=== PATIENT | female | born 1935 | race African-American/Black ===

== ENCOUNTER 2016-08-07 20:22 | Inpatient (IN) ==
--- NOTE | 2016-08-07 21:08 | XRay Report ---
Portable chest. Indication: Shortness of breath. Comparison: 2014. The heart is normal in size. There is prominent uncoiling of the thoracic aorta. Calcific plaque is present within the aortic knob. There are areas of atelectasis and scarring at the bases. Suspected early infiltrate at the left lung base. No pneumothorax. No pleural effusion. There is a prominent scoliosis, demineralization, and degenerative changes of the spinal column and shoulders. Impression: Chronic lung changes with superimposed bilateral basilar atelectasis and developing left basilar infiltrate. PROCEDURE INTERPRETED AT [facility] DEPARTMENT OF RADIOLOGY Final Report Signed by: Dr. Ebonie Galdamez
[2016-08-07 21:31] LABS: Basophils % 0.2 % (0.0-0.8); Hematocrit 32.5 VOL% (35.7-47.0); Hemoglobin 10.2 GM/DL (12.0-16.0); Immature Granulocytes % 0.2 %; Immature Granulocytes Absolute 0.01 #; Lymphocytes # 0.8 10*3/uL (1.4-4.0); Mean Corpuscular HGB Conc 31.4 GM/DL (32-36); Mean Corpuscular Hemoglobin 23 PG (27-34); Mean Corpuscular Volume 74.7 FL (87-102); Mean Platelet Volume 10.1 FL (9.6-12.0); Monocytes # 0.2 10*3/uL (0.11-0.8); Monocytes % 3.4 % (1.7-12.7); Neutrophils # 3.8 10*3/uL (1.4-7.4); Neutrophils % 80.2 % (38.7-73.9); Platelet Count 317 10*3/uL (130-400); Red Blood Count 4.35 10*6/uL (3.8-5.5); Red Cell Distribution Width 17.9 % (9.3-17.3); White Blood Count 4.7 10*3/uL (4.5-13.71)
[2016-08-07 21:36] LABS: Apearance,Urine Slightly Hazy (Clear); Bilirubin,Urine Negative (Negative); Blood, Urine Negative (Negative); Glucose,Urine (UA) Negative (Negative); Hyaline Casts,Urine 3 /LPF (0-3); Ketones,Urine 5 mg/dL (Negative); Mucus,Urine Few /LPF (Occasional); Nitrite,Urine Negative (Negative); Protein,Urine 30 MG/DL; RBC,Urine 2 /HPF (0-4); Squamous Epithelial Cell,Urine Occasional /HPF (0-10); Urine Color Yellow (Yellow); Urine Specific Gravity 1.023 (1.001-1.035); Urine Urobilinogen < 2.0 EU/DL (0.2-1.0); WBC,Urine 2 /HPF (0-6)
--- NOTE | 2016-08-07 21:57 | Emergency Department Note ---
IMaine Sierra, am scribing for, and in the presence of, Andrea Bansk MD 20:58. Darren Purcell Robert M, MD, personally performed the services described in this documentation, ascribed by [place] in my presence, and it is both accurate and complete . Arrival - Arrival Chief Complaint: Urogenital - Female Stated Complaint: NAUSEA AND ABD PAIN ED Nursing Triage Note: pt arrives via ems with c/o lower abd pain and unable to urinate. states nausea and 1 episode of vomiting Mode of Arrival: Stretcher Limitations: No Limitations Source: Patient - History of Present Illness HPI Narrative: Pt is a 81 y/o female that was brought to the ED via EMS with c/o lower right sided abdominal pain and vomiting that began a few hours ago. Pt states she is vomiting up water. Pt reports she is able to urinate now but has not urinated yet. No other complaints/pain in ED. she does not have any known heart problems. She takes aspirin a day and a blood pressure medication according to her family. Onset (ago): hour(s) Consistency: constant Severity: mild Severity scale (1-10): 2 Quality: other Allergies/Adverse Reactions: Allergies Allergy/AdvReac Type Severity Reaction Status Date / Time Penicillins Allergy Intermediate Unknown/Unable Verified 07/22/16 10:33 to obtain Sulfa (Sulfonamide Allergy Mild Unknown/Unable Verified 07/22/16 10:33 Antibiotics) to obtain surgical tape Allergy Intermediate Redness of Uncoded 07/22/16 10:33 Skin and severe peeling at site Home Medications: Home Medications Medication Instructions Recorded Confirmed Type Aspirin [Ecotrin] 81 mg PO DAILY 10/26/14 08/07/16 History Folic Acid 1 mg MC DAILY 10/26/14 08/07/16 History Pantoprazole Tab [Protonix Tab] 40 mg PO DAILY 10/26/14 08/07/16 History Vitamin B Complex 100 mg PO DAILY 10/26/14 08/07/16 History Clindamycin Cap [Cleocin Cap] 300 mg PO Q8HR #30 capsule 12/28/15 08/07/16 Rx Comp.stocking,Knee,Regular,Sml 1 each MISC DIRECTED #2 each 07/22/16 Rx [Compression Stocking] Ondansetron Odt Tab [Zofran Odt] 4 mg PO Q4H #30 tablet 07/22/16 08/07/16 Rx Review of System - Review of System 12 point system: reviewed and no additional remarkable complaints except as stated - Review of System Constitutional: Absent: fever Respiratory: Absent: cough Cardiovascular: Absent: chest pain Gastrointestinal: Present: abdominal pain (lower right side), vomiting Musculoskeletal: Absent: arm pain, back pain, leg pain, neck pain Skin: Absent: rash Neurological: Absent: headache Medical,Surgical,& Family Hx - Medical History Cardio: History of: Cardiac Dysrhythmia (ATRIAL FIBRILATION), Cardiovascular Problems (LOW BLOOD PRESSURE) No history of: Aneurysm, Cerebrovascular Disease, Congenital Heart Disease, CHF, CAD, Hypertension, Pacemaker, PVD, Valvular Heart Disease Neurology: No history of: Seizures HEENT: History of: Eye Problem (BLURRY VISION) No history of: Ear Problem, Dental Problems, Glaucoma, Oral Cancer Endocrine: No history of: Adrenal Disease, Diabetes Mellitus (IDDM), Diabetes Mellitus ( NIDDM), Dyslipidemia, Thyroid Disorder, Endocrine Cancer, Endocrine Problems Rheumatology: No history of;: Psoriasis, Sjogrens, Systemic Lupus Erythematosus Renal: No history of: Renal (Kidney) Cancer, Dialysis, Renal Failure Genitourinary: No history of: Bladder Problem, Kidney Stones, Recurring Urinary Tract Infections, Genitourinary Cancer, Problems Gastrointestinal: History of: GI Problems (COLON CANCER SURGERY MAR 2014) Musculoskeletal: History of: Osteoporosis No history of: Amputation Hematology: History of: Bleeding Problems (PAST HISTORY OF BLOOD LOSS) No history of: Blood Transfusion Reaction Reproductive: No history of: Abnormal Pap Smear, Breast Cancer, Endometriosis, Ectopic , Ovarian Cysts, Complication, Sexually Transmitted Disorders , Reproductive Cancer, Reproductive Problems Other: History of: Eczema No history of: Anesthesia Reactions, Anaphylaxis, Malignant Hyperthermia, MRSA, Vancomycin-Resistant Enterococci, Skin Problems, Miscellaneous Medical Problems Comment Only: Cancer (COLON CANCER) - Surgical History Cardiac Surgeries: Patient Denies: Femoral-Popliteal Bypass Graft, Cardiac Catheterization, Cardiac Surgery, Carotid Endarterectomy, Internal Defibrillator, Vascular Access Devices Thoracic Surgeries: Patient denies;: Kidney (Renal Surgery), Lithotripsy, Nephrectomy, Organ Transplant, Lobectomy Neurologic Surgeries: Patient denies: Neurologic Surgery HEENT Surgeries: Surgical HX of: Eye Surgery (RIGHT EYE CATARACT) Patient denies: Carotid Endarterectomy, Thyroid Surgery, Tonsilectomy & Adenoidectomy Abdominal Surgeries: Surgical HX of: Abdominal Surgery (PT STATES BLOCKAGE IN STOMACH), Colonoscopy Patient denies: Appendectomy, Cholecystectomy, Gastric Bypass Surgery, EGD, Hernia Repair, Splenectomy Reproductive Surgeries: Patient denies;: Breast Surgery, Cystoscopy, Genitourinary Surgery, Gynecologic Surgery Orthopedic Surgeries: Patient denies;: Implanted Devices, Orthopedic Surgery, Spinal Surgery, Total Hip Replacement, Total Knee Replacement - Family History Family History: Reports;: Family Diabetes (DAUGHTER, AND SON AND GRANDSON AND 2 SISTERS), Family Hypertension (DAUGHTER, SISTER), Family Stroke (SON, DAUGHTER) Denies;: Family Anesthesia Reaction, Family Cancer, Family Heart Disease, Family Psychiatric Problems - Social History Smoking Status: Never smoker Frequency of Alcohol Use: None Type of Drug Use: None Exam Vital Signs: Vital Signs Temperature 98.9 F 08/07/16 20:22 Pulse Rate 68 08/07/16 22:03 Respiratory Rate 20 08/07/16 22:03 Blood Pressure 134/82 08/07/16 22:03 O2 Sat by Pulse Oximetry 98 08/07/16 22:03 - General General appearance: alert, in no apparent distress - Head Head exam: Present: atraumatic, normocephalic - Eye Eye exam: Present: PERRL, EOMI - ENT ENT exam: Present: mucous membranes moist. Absent: mucous membranes dry - Neck Neck exam: Present: full ROM. Absent: tenderness - Chest Chest inspection: Present: symmetric chest wall rise. Absent: tenderness - Respiratory Respiratory exam: Present: normal lung sounds bilaterally. Absent: respiratory distress - Cardiovascular Cardiovascular exam: Present: regular rate, normal rhythm, normal heart sounds - Abdominal Exam Abdominal exam: Present: soft. Absent: tenderness - Extremities Exam Extremities exam: Present: full ROM. Absent: tenderness - Back Exam Back exam: Present: full ROM. Absent: tenderness - Neurological Exam Neurological exam: Present: alert, oriented X3, CN II-XII intact, other (seems a bit demented) - Psychiatric Psychiatric exam: Present: normal affect, normal mood - Skin Skin exam: Present: warm, dry Course - Consultations Consultation #1: Dr. Rubin was notified of the patient. We will treat the patient symptomatically and see if she improves. If her nausea and right upper quadrant pain persist he may take her to catheterization tonight. Time: 22:15 Results - Labs CBC & BMP: 08/07/16 21:09 08/07/16 21:09 Lab Results: I have reviewed the patients labs Labs: Lab Results WBC 4.7 10*3/uL (4.5-13.71) 08/07/16 21:09 RBC 4.35 10*6/uL (3.8-5.5) 08/07/16 21:09 Hgb 10.2 GM/DL (12.0-16.0) L 08/07/16 21:09 Hct 32.5 VOL% (35.7-47.0) L 08/07/16 21:09 MCV 74.7 FL (87-102) L 08/07/16 21: MCH 23 PG (27-34) L 08/07/16 21:09 MCHC 31.4 GM/DL (32-36) L 08/07/16 21:09 RDW 17.9 % (9.3-17.3) H 08/07/16 21:09 Plt Count 317 10*3/uL (130-400) 08/07/16 21:09 MPV 10.1 FL (9.6-12.0) 08/07/16 21:09 Neut % (Auto) 80.2 % (38.7-73.9) H 08/07/16 21:09 Lymph % (Auto) 16.0 % (21.3-54.2) L 08/07/16 21:09 [place] % (Auto) 3.4 % (1.7-12.7) 08/07/16 21:09 Eos % (Auto) 0.0 % (0.00-10.9) 08/07/16 21:09 Baso % (Auto) 0.2 % (0.0-0.8) 08/07/16 21:09 Neut # (Auto) 3.8 10*3/uL (1.4-7.4) 08/07/16 21:09 Lymph # (Auto) 0.8 10*3/uL (1.4-4.0) L 08/07/16 21:09 [place] # (Auto) 0.2 10*3/uL (0.11-0.8) 08/07/16 21:09 Eos # (Auto) 0.0 10*3/uL (0.0-0.87) 08/07/16 21:09 Baso # (Auto) 0.0 10*3/uL (0.0-0.2) 08/07/16 21:09 Immature Gran % 0.2 % 08/07/16 21:09 Nucleated RBC % 0.0 /100WBC 08/07/16 21:09 Immature Gran # 0.01 # 08/07/16 21:09 Nucleated RBCs # 0.00 10*3/uL 08/07/16 21:09 Sodium 143 MMOL/L (136-145) 08/07/16 21:09 Potassium 3.9 MMOL/L (3.5-5.1) 08/07/16 21:09 Chloride 104 MMOL/L (98-107) 08/07/16 21:09 Carbon Dioxide 28 MMOL/L (21-32) 08/07/16 21:09 Anion Gap 14.9 MMOL/L (5.0-15.0) 08/07/16 21:09 BUN 19 MG/DL (7-18) H 08/07/16 21:09 Creatinine 0.90 MG/DL (0.55-1.02) 08/07/16 21:09 GFR Calculation 58 ML/MIN 08/07/16 21:09 BUN/Creatinine Ratio 21.00 RATIO (6.00-20.00) H 08/07/16 21:09 Glucose 119 MG/DL (74-106) H 08/07/16 21:09 Calculated Osmolality 287.0 MOS/KG (273-304) 08/07/16 21:09 Calcium 9.1 MG/DL (8.5-10.1) 08/07/16 21:09 Magnesium 2.3 MG/DL (1.8-2.4) 08/07/16 21:09 Total Creatine Kinase 1940 U/L (26-192) H 08/07/16 21:09 CK-MB (CK-2) 202.0 U/L (0.5-3.6) H 08/07/16 21:09 CK and CKMB Interp 10.4 % 08/07/16 21:09 Troponin I 45.300 NG/ML (0.00-0.045) H 08/07/16 21:09 Amylase 92 U/L (25-115) 08/07/16 21:09 Lipase 87.0 U/L (73-393) 08/07/16 21:09 Urine Color Yellow (Yellow) 08/07/16 21:09 Urine Appearance Slightly hazy (Clear) 08/07/16 21:09 Urine pH 6.0 (4.5-8.0) 08/07/16 21:09 Ur Specific [place] 1.023 (1.001-1.035) 08/07/16 21:09 Urine Protein 30 MG/DL 08/07/16 21:09 Urine Glucose (UA) Negative mg/dL (Negative) 08/07/16 21:09 Urine Ketones 5 mg/dL (Negative) 08/07/16 21:09 Urine Blood Negative mg/dL (Negative) 08/07/16 21:09 Urine Nitrate Negative (Negative) 08/07/16 21:09 Urine Bilirubin Negative mg/dL (Negative) 08/07/16 21:09 Urine Urobilinogen < 2.0 EU/DL (0.2-1.0) H 08/07/16 21:09 Urine Leukocytes Negative Rachel/ul (Negative) 08/07/16 21:09 Urine RBC 2 /HPF (0-4) 08/07/16 21:09 Urine WBC 2 /HPF (0-6) 08/07/16 21:09 Ur Squamous Epith Cells Occasional /HPF (0-10) 08/07/16 21:09 Hyaline Casts 3 /LPF (0-3) 08/07/16 21:09 Urine Mucus Few /LPF (Occasional) 08/07/16 21:09 Ur Culture Indicated? Not indicated 08/07/16 21:09 - EKG EKG results: interpreted by ERMD (a fibrillation with ST changes and T-wave inversions inferolaterally.) Critical Care Time Critical Care Time: Yes Total Critical Care Time: 44 Disposition Clinical Impression: Non-STEMI (non-ST elevated myocardial infarction) Case discussed with: patient, patient's family Disposition: Still a Patient Condition: Stable Time of Disposition: 22:22
[2016-08-07 22:05] LABS: CKMB % 10.4 %; Calcium 9.1 MG/DL (8.5-10.1); Magnesium 2.3 MG/DL (1.8-2.4); Potassium 3.9 MMOL/L (3.5-5.1)
[2016-08-07 22:08] LABS: Troponin I Only 45.3 NG/ML (0.00-0.045)
[2016-08-07] MEDS ORDERED: ENOXAPARIN 60 MG/0.6 ML SYRINGE SUBCUT STA (22:09)
[2016-08-07] MEDS ORDERED: ASPIRIN 325 MG TABLET PO STA (22:09)
[2016-08-07] MEDS ORDERED: TICAGRELOR 90 MG TABLET PO STA (22:09)
[2016-08-07] MEDS ORDERED: NITROGLYCERIN 2% OINT 1 INCH/GM PACK TOP STA (22:10)
[2016-08-07] MEDS ORDERED: ENOXAPARIN 60 MG/0.6 ML SYRINGE ONE (22:14)
[2016-08-07] MEDS ORDERED: TICAGRELOR 90 MG TABLET ONE (22:14)
[2016-08-07] MEDS ORDERED: ASPIRIN 325 MG TABLET ONE (22:15)
[2016-08-07] MEDS ORDERED: NITROGLYCERIN 2% OINT 1 INCH/GM PACK TOP ONE (22:15)
[2016-08-07] MEDS ORDERED: ONDANSETRON 4 MG/2 ML VIAL ONE (22:21)
[2016-08-07] MEDS ORDERED: ONDANSETRON 4 MG/2 ML VIAL IV STA (22:25)
[2016-08-07] MEDS ORDERED: DOCUSATE SODIUM 100 MG CAPSULE PO PRN (22:34)
[2016-08-07] MEDS ORDERED: ONDANSETRON 4 MG/2 ML VIAL IV PRN (22:34)
[2016-08-07] MEDS ORDERED: POTASSIUM CHLORIDE 20 MEQ/15 ML UDCUP PER TUBE PRN (22:34)
[2016-08-07] MEDS ORDERED: ACETAMINOPHEN 325 MG TABLET PO PRN (22:34)
[2016-08-07] MEDS ORDERED: MAGNESIUM SULF RIDER 2 GM in PREMIX 1 EACH IV PRN (22:34)
[2016-08-07] MEDS ORDERED: MAGNESIUM SULF RIDER 4 GM in PREMIX 1 EACH IV PRN (22:34)
[2016-08-08 02:32] LABS: CKMB % 8.5 %
[2016-08-08 02:39] LABS: Troponin I Only 48.5 NG/ML (0.00-0.045)
[2016-08-08 08:07] LABS: Basophils % 0.2 % (0.0-0.8); Hematocrit 30.4 VOL% (35.7-47.0); Hemoglobin 9.4 GM/DL (12.0-16.0); Immature Granulocytes % 0.4 %; Immature Granulocytes Absolute 0.02 #; Lymphocytes # 0.7 10*3/uL (1.4-4.0); Lymphocytes % 13.9 % (21.3-54.2); Mean Corpuscular HGB Conc 30.9 GM/DL (32-36); Mean Corpuscular Hemoglobin 24 PG (27-34); Mean Corpuscular Volume 76.2 FL (87-102); Mean Platelet Volume 10.9 FL (9.6-12.0); Monocytes # 0.3 10*3/uL (0.11-0.8); Monocytes % 5.1 % (1.7-12.7); Neutrophils # 4.2 10*3/uL (1.4-7.4); Neutrophils % 80.4 % (38.7-73.9); Platelet Count 293 10*3/uL (130-400); Red Blood Count 3.99 10*6/uL (3.8-5.5); Red Cell Distribution Width 18.3 % (9.3-17.3); White Blood Count 5.3 10*3/uL (4.5-13.71)
[2016-08-08 08:15] LABS: Calcium 8.7 MG/DL (8.5-10.1); Magnesium 2.2 MG/DL (1.8-2.4); Potassium 3.7 MMOL/L (3.5-5.1)
[2016-08-08 08:28] LABS: Troponin I Only 44.3 NG/ML (0.00-0.045)
--- NOTE | 2016-08-08 08:30 | Cardiology History & Physical ---
Assessment and Plan (1) Atrial fibrillation with controlled ventricular response Status: Acute Assessment and plan: 1. 81-year-old BF who is a poor historian with controlled hypertension, chronic atrial fibrillation, reportedly multiple strokes most recently February 2014, now presents with non-STEMI with resolution of symptoms late last night in the emergency room 2. Continue Lovenox 3. Low dose beta fady with high intensity statin therapy 4. History of colon cancer and uterine mass status post hysterectomy with oophorectomy as well as right colectomy March 2014 5. Given she is a very poor historian, when he discussed with family ( currently unavailable) before considering catheterization to define her coronary anatomy 6. Check echocardiogram to evaluate for structural heart disease Current Visit: Yes (2) Non-STEMI (non-ST elevated myocardial infarction) Status: Acute Current Visit: Yes History of Present Illness Chief complaint: nausea History of present illness: Ms. Schneider is a 81 year old female who is a very poor historian, and this history is obtained mainly from ED note and previous ER visits. She denies any symptoms currently. She presented late yesterday evening with some left upper quadrant discomfort and nausea and was found to have severely elevated troponin. She was in a fair amount of distress on arrival but her symptoms improved significantly fairly soon with treatment. She has no known cardiac history. She had uterine mass and right sided colon cancer with subsequent right colectomy and hysterectomy with nephrectomy March 2014. She apparently has had multiple strokes with chronic atrial fibrillation most recently February 2014. She is in no distress now and continuing her name but is unaware of the date or place or situation. Her film is unavailable to obtain further history, although they apparently when the ER last night. Home Medications Medication Instructions Recorded Confirmed Type Aspirin [Ecotrin] 81 mg PO DAILY 10/26/14 08/07/16 History Folic Acid 1 mg MC DAILY 10/26/14 08/07/16 History Pantoprazole Tab [Protonix Tab] 40 mg PO DAILY 10/26/14 08/07/16 History Vitamin B Complex 100 mg PO DAILY 10/26/14 08/07/16 History Clindamycin Cap [Cleocin Cap] 300 mg PO Q8HR #30 capsule 12/28/15 08/07/16 Rx Comp.stocking,Knee,Regular,Sml 1 each MISC DIRECTED #2 each 07/22/16 Rx [Compression Stocking] Ondansetron Odt Tab [Zofran Odt] 4 mg PO Q4H #30 tablet 07/22/16 08/07/16 Rx Allergies Allergy/AdvReac Type Severity Reaction Status Date / Time Penicillins Allergy Intermediate Unknown/Unable Verified 07/22/16 10:33 to obtain Sulfa (Sulfonamide Allergy Mild Unknown/Unable Verified 07/22/16 10:33 Antibiotics) to obtain surgical tape Allergy Intermediate Redness of Uncoded 07/22/16 10:33 Skin and severe peeling at site ROS unobtainable: due to mental status Medical,Surgical,& Family Hx - Medical History Cardio: History of: Cardiac Dysrhythmia (ATRIAL FIBRILATION), Cardiovascular Problems (LOW BLOOD PRESSURE) No history of: Aneurysm, Cerebrovascular Disease, Congenital Heart Disease, CHF, CAD, Hypertension, Pacemaker, PVD, Valvular Heart Disease Neurology: No history of: Seizures HEENT: History of: Eye Problem (BLURRY VISION) No history of: Ear Problem, Dental Problems, Glaucoma, Oral Cancer Endocrine: No history of: Adrenal Disease, Diabetes Mellitus (IDDM), Diabetes Mellitus ( NIDDM), Dyslipidemia, Thyroid Disorder, Endocrine Cancer, Endocrine Problems Rheumatology: No history of;: Psoriasis, Sjogrens, Systemic Lupus Erythematosus Respiratory: No history of: Asthma, Bronchitis, COPD, Intubation, Obstructive Sleep Apnea , Pulmonary Embolism, Pulmonary Hypertension, Pneumonia, Lung Cancer, Respiratory Problems Renal: No history of: Renal (Kidney) Cancer, Dialysis, Renal Failure Genitourinary: No history of: Bladder Problem, Kidney Stones, Recurring Urinary Tract Infections, Genitourinary Cancer, Problems Gastrointestinal: History of: GI Problems (COLON CANCER SURGERY MAR 2014) Musculoskeletal: History of: Osteoporosis No history of: Amputation Hematology: History of: Bleeding Problems (PAST HISTORY OF BLOOD LOSS) No history of: Blood Transfusion Reaction Reproductive: No history of: Abnormal Pap Smear, Breast Cancer, Endometriosis, Ectopic , Ovarian Cysts, Complication, Sexually Transmitted Disorders , Reproductive Cancer, Reproductive Problems Other: History of: Eczema No history of: Anesthesia Reactions, Anaphylaxis, Malignant Hyperthermia, MRSA, Vancomycin-Resistant Enterococci, Skin Problems, Miscellaneous Medical Problems Comment Only: Cancer (COLON CANCER) - Surgical History Cardiac Surgeries: Patient Denies: Femoral-Popliteal Bypass Graft, Cardiac Catheterization, Cardiac Surgery, Carotid Endarterectomy, Internal Defibrillator, Vascular Access Devices Thoracic Surgeries: Patient denies;: Kidney (Renal Surgery), Lithotripsy, Nephrectomy, Organ Transplant, Lobectomy Neurologic Surgeries: Patient denies: Neurologic Surgery HEENT Surgeries: Surgical HX of: Eye Surgery (RIGHT EYE CATARACT) Patient denies: Carotid Endarterectomy, Thyroid Surgery, Tonsilectomy & Adenoidectomy Abdominal Surgeries: Surgical HX of: Abdominal Surgery (PT STATES BLOCKAGE IN STOMACH), Colonoscopy Patient denies: Appendectomy, Cholecystectomy, Gastric Bypass Surgery, EGD, Hernia Repair, Splenectomy Reproductive Surgeries: Patient denies;: Breast Surgery, Cystoscopy, Genitourinary Surgery, Gynecologic Surgery Orthopedic Surgeries: Patient denies;: Implanted Devices, Orthopedic Surgery, Spinal Surgery, Total Hip Replacement, Total Knee Replacement - Family History Family History: Reports;: Family Diabetes (DAUGHTER, AND SON AND GRANDSON AND 2 SISTERS), Family Hypertension (DAUGHTER, SISTER), Family Stroke (SON, DAUGHTER) Denies;: Family Anesthesia Reaction, Family Cancer, Family Heart Disease, Family Psychiatric Problems - Social History Smoking Status: Never smoker Frequency of Alcohol Use: None Type of Drug Use: None Cardiology Physical Exam - Constitutional Vitals: Vital Signs Temp Pulse Resp BP Pulse Ox 97.8 F 76 14 161/91 99 08/07/16 23:30 08/08/16 06:00 08/08/16 06:00 08/08/16 06:00 08/08/16 06:00 Intake and Output 08/07/16 08/08/16 08/08/16 23:59 07:59 15:59 Output Total 150 / 150 Balance -150 / -150 Output: Urine 150 / 150 Other: Voiding Method Indwelling Catheter Weight 52.163 kg 52.163 kg Patient Weight 08/08/16 23:59 Weight 52.163 kg General appearance: no acute distress, under weight - Respiratory Respiratory exam: Present: rales. Absent: wheezes - Cardiovascular Cardiovascular exam: Present: irregular rhythm. Absent: diastolic murmur - GI/Abdominal GI/Abdominal exam: Present: soft. Absent: tenderness - Extremities Exam Extremities exam: Absent: edema Result/EKG - Labs CBC & BMP: 08/08/16 07:01 08/08/16 07:01 Labs: Laboratory Results - last 24 hr 08/08/16 08/08/16 08/08/16 01:12 07:01 07:01 WBC 5.3 RBC 3.99 Hgb 9.4 L Hct 30.4 L MCV 76.2 L MCH 24 L MCHC 30.9 L RDW 18.3 H Plt Count 293 MPV 10.9 Neut % (Auto) 80.4 H Lymph % (Auto) 13.9 L [place] % (Auto) 5.1 Eos % (Auto) 0.0 Baso % (Auto) 0.2 Neut # (Auto) 4.2 Lymph # (Auto) 0.7 L [place] # (Auto) 0.3 Eos # (Auto) 0.0 Baso # (Auto) 0.0 Immature Gran % 0.4 Nucleated RBC % 0.0 Immature Gran # 0.02 Nucleated RBCs # 0.00 Sodium Potassium Chloride Carbon Dioxide Anion Gap BUN Creatinine GFR Calculation BUN/Creatinine Ratio Glucose Calculated Osmolality Calcium Magnesium Total Creatine Kinase 1787 H 1562 H CK-MB (CK-2) 151.8 H D 108.9 H D CK and CKMB Interp 8.5 7.0 Troponin I 48.500 H 44.300 H 08/08/16 07:01 WBC RBC Hgb Hct MCV MCH MCHC RDW Plt Count MPV Neut % (Auto) Lymph % (Auto) [place] % (Auto) Eos % (Auto) Baso % (Auto) Neut # (Auto) Lymph # (Auto) [place] # (Auto) Eos # (Auto) Baso # (Auto) Immature Gran % Nucleated RBC % Immature Gran # Nucleated RBCs # Sodium 143 Potassium 3.7 Chloride 104 Carbon Dioxide 28 Anion Gap 14.7 BUN 20 H Creatinine 0.90 GFR Calculation 58 BUN/Creatinine Ratio 22.00 H Glucose 116 H Calculated Osmolality 288.0 Calcium 8.7 Magnesium 2.2 Total Creatine Kinase CK-MB (CK-2) CK and CKMB Interp Troponin I
--- NOTE | 2016-08-08 08:32 | EKG Report ---
Stationary ECG Study [facility] ER Test Date: 08/07/2016 10:12:11 PM Pat Name: GARCIA BYRNES Department: Room: 125 Gender: F Discharging Machine Operator: : 1935 Requested by: Andrea Banks Order Number: [id number] Reading MD: RYLEE HATCH Intervals [place] Rate: 79 P: 999 NC: 0 QRS: 79 QRSD: 77 T: -89 QT: 417 QTc: 452 Interpretive Statements ATRIAL FIBRILLATION VOLTAGE CRITERIA FOR LVH ST DEVIATION AND MARKED T-WAVE ABNORMALITY, CONSIDER ANTEROLATERAL ISCHEMIA ST DEVIATION AND MODERATE T-WAVE ABNORMALITY, CONSIDER INFERIOR ISCHEMIA INTERPRETATION BASED ON A DEFAULT AGE OF 40 YEARS Electronically Signed On 08-08-16 12:19:13 PRESS LOADER by RYLEE HATCH [id number]
--- NOTE | 2016-08-08 08:38 | EKG Report ---
Stationary ECG Study [facility] Test Date: 08/07/2016 11:47:27 PM Pat Name: GARCIA BYRNES Department: Room: 125 Gender: F Brim Blocker: Ellie MARTIN RN : 1935 Requested by: Azael Leahy Order Number: [id number] Reading MD: RYLEE HATCH Intervals [place] Rate: 81 P: 999 TN: 0 QRS: 76 QRSD: 78 T: 270 QT: 419 QTc: 457 Interpretive Statements ATRIAL FIBRILLATION VOLTAGE CRITERIA FOR LVH ST DEVIATION AND MODERATE T-WAVE ABNORMALITY, CONSIDER ANTEROLATERAL ISCHEMIA ST DEVIATION AND MODERATE T-WAVE ABNORMALITY, CONSIDER INFERIOR ISCHEMIA INTERPRETATION BASED ON A DEFAULT AGE OF 40 YEARS Electronically Signed On 08-08-16 12:20:10 DIRECTOR TALENT MANAGEMENT by RYLEE HATCH [id number]
--- NOTE | 2016-08-08 08:39 | EKG Report ---
Stationary ECG Study [facility] Test Date: 08/08/2016 8:38:34 AM Pat Name: GARCIA BYRNES Department: Room: 125 Gender: F Instructor Dancing: : 1935 Requested by: Azael Leahy Order Number: [id number] Reading MD: RYLEE HATCH Intervals [place] Rate: 71 P: 999 CA: 0 QRS: 67 QRSD: 77 T: 264 QT: 431 QTc: 453 Interpretive Statements ATRIAL FIBRILLATION WITH ABERRANT CONDUCTION OR VENTRICULAR PREMATURE COMPLEXES VOLTAGE CRITERIA FOR LVH ST DEVIATION AND MARKED T-WAVE ABNORMALITY, CONSIDER ANTEROLATERAL ISCHEMIA ST DEVIATION AND MODERATE T-WAVE ABNORMALITY, CONSIDER INFERIOR ISCHEMIA Electronically Signed On 08-08-16 12:24:14 DAIRY HUSBANDMAN by RYLEE HATCH [id number]
[2016-08-08] MEDS ORDERED: NITROGLYCERIN SL 0.4 MG TABLET SL PRN (08:40)
[2016-08-08 09:50] LABS: Albumin 2.7 G/DL (3.4-5.0); Bilirubin,Total 0.4 MG/DL (0.2-1.0); Calcium 8.4 MG/DL (8.5-10.1); Potassium 3.7 MMOL/L (3.5-5.1); Total Protein 6.1 G/DL (6.4-8.3)
[2016-08-08] MEDS: ENOXAPARIN 60 MG/0.6 ML SYRINGE SUBCUT SCH ×2 (09:53→21:08)
[2016-08-08] MEDS: ASPIRIN EC 81 MG TABLET PO SCH (10:46)
[2016-08-08] MEDS: PANTOPRAZOLE 40 MG TABLET PO SCH (10:46)
[2016-08-08] MEDS: TICAGRELOR 90 MG TABLET PO SCH ×2 (10:46→21:08)
[2016-08-08] MEDS: POTASSIUM CHLORIDE 20 MEQ TABLET PO PRN (10:46)
[2016-08-08] MEDS: ATORVASTATIN 40 MG TABLET PO SCH (10:46)
[2016-08-08] MEDS: METOPROLOL TARTRATE 25 MG TABLET PO SCH ×2 (10:46→21:08)
--- NOTE | 2016-08-08 12:34 | EKG Report ---
Stationary ECG Study [facility] Test Date: 08/08/2016 12:34:36 PM Pat Name: GARCIA BYRNES Department: Room: 125 Gender: F Instructional Design Specialist: : 1935 Requested by: Azael Leahy Order Number: [id number] Reading MD: RYLEE HATCH Intervals [place] Rate: 73 P: 999 VT: 0 QRS: 60 QRSD: 77 T: 253 QT: 428 QTc: 454 Interpretive Statements ATRIAL FIBRILLATION VOLTAGE CRITERIA FOR LVH ST DEVIATION AND MARKED T-WAVE ABNORMALITY, CONSIDER ANTEROLATERAL ISCHEMIA ST DEVIATION AND MODERATE T-WAVE ABNORMALITY, CONSIDER INFERIOR ISCHEMIA Electronically Signed On 08-08-16 15:04:31 TROUBLE SHOOTING MECHANIC by RYLEE HATCH [id number]
--- NOTE | 2016-08-08 14:56 | EKG Report ---
Stationary ECG Study [facility] Test Date: 08/08/2016 2:55:51 PM Pat Name: GARCIA BYRNES Department: Room: 125 Gender: F Clinical Programmer: MARCELLUS : 1935 Requested by: Andrea Banks Order Number: [id number] Reading MD: RYLEE HATCH Intervals [place] Rate: 73 P: 999 CT: 0 QRS: 81 QRSD: 76 T: 269 QT: 419 QTc: 445 Interpretive Statements ATRIAL FIBRILLATION VOLTAGE CRITERIA FOR LVH ST DEVIATION AND MODERATE T-WAVE ABNORMALITY, CONSIDER LATERAL ISCHEMIA ST DEVIATION AND MODERATE T-WAVE ABNORMALITY, CONSIDER INFERIOR ISCHEMIA INTERPRETATION BASED ON A DEFAULT AGE OF 40 YEARS Electronically Signed On 08-08-16 15:05:20 PR MANAGER by RYLEE HATCH [id number]
--- NOTE | 2016-08-08 15:22 | ECHO Report ---
Mirlande Schneider Exam Date: 08/08/2016 10:08 Referring Physician: Technologist: Sandra LEÓN Age: 81 Ht (in): Wt (lb): Gender: F Exam Location: [facility] Echo Indications: chest pain, a fib, NON- STEMI BP: / HR: Rhythm: Sinus Technical Quality: IMPRESSIONS 4+ left atrial enlargement Normal LV systolic function with ejection fraction estimated to be 60% without obvious wall motion normality Aortic sclerosis without stenosis; 1+ aortic regurgitation 1-2+ mitral regurgitation 2+ tricuspid regurgitation with RVSP of 50 mmHg plus RAP suggesting at least moderate pulmonary hypertension Irregular rhythm noted MEASUREMENTS (Male / Female) Normal Values 2D ECHO LV Diastolic Diameter PLAX 4.7 cm 4.2 - 5.9 / 3.9 - 5.3 cm LV Systolic Diameter PLAX 4.1 cm LV Fractional Shortening PLAX 12.4 % IVS Diastolic Thickness 1.6 cm 0.6 - 1.0 / 0.6 - 0.9 cm LVPW Diastolic Thickness 1.0 cm 0.6 - 1.0 / 0.6 - 0.9 cm RV Internal Dim ED PLAX 2.8 cm Aortic Root Diameter 3.4 cm LA Systolic Diameter LX 6.1 cm 3.0 - 4.0 / 2.7 - 3.8 cm DOPPLER TR Peak Velocity 352.0 cm/s TR Peak Gradient 49.6 mmHg FINDINGS Left Ventricle Moderately increased septal wall thickness. Moderate concentric left ventricular hypertrophy with diastolic dysfunction. Left ventricular ejection fraction is estim Right Ventricle Moderately increased right ventricular size. Right Atrium Severely increased right atrial size. Left Atrium Severely increased left atrial diameter. Mitral Valve Mil Aortic Valve Aortic valve sclerosis without stenosis. Mild aortic valve regurgitation. Tricuspid Valve Pulmonic Valve Pulmonic valve not well visualized. Pericardium No pericardial effusion.+ Pleural effusion. Aorta Normal size aortic root and proximal ascending aorta. Azael Rubin (Electronically Signed) Final Date: 08 August 2016 15:21
[2016-08-08 15:58] LABS: CKMB % 4.7 %
[2016-08-09 05:01] LABS: Basophils % 0.1 % (0.0-0.8); Hematocrit 30.6 VOL% (35.7-47.0); Hemoglobin 9.7 GM/DL (12.0-16.0); Immature Granulocytes % 0.6 %; Immature Granulocytes Absolute 0.07 #; Lymphocytes # 0.7 10*3/uL (1.4-4.0); Lymphocytes % 5.4 % (21.3-54.2); Mean Corpuscular HGB Conc 31.7 GM/DL (32-36); Mean Corpuscular Hemoglobin 24 PG (27-34); Mean Corpuscular Volume 74.8 FL (87-102); Mean Platelet Volume 10.6 FL (9.6-12.0); Monocytes # 0.9 10*3/uL (0.11-0.8); Monocytes % 7.5 % (1.7-12.7); Neutrophils # 10.6 10*3/uL (1.4-7.4); Neutrophils % 86.4 % (38.7-73.9); Platelet Count 283 10*3/uL (130-400); Red Blood Count 4.09 10*6/uL (3.8-5.5); Red Cell Distribution Width 17.9 % (9.3-17.3); White Blood Count 12.3 10*3/uL (4.5-13.71)
[2016-08-09 05:43] LABS: Calcium 8.5 MG/DL (8.5-10.1); Potassium 3.9 MMOL/L (3.5-5.1)
[2016-08-09] MEDS: ASPIRIN EC 81 MG TABLET PO SCH (09:28)
[2016-08-09] MEDS: ATORVASTATIN 40 MG TABLET PO SCH (09:29)
[2016-08-09] MEDS: TICAGRELOR 90 MG TABLET PO SCH ×2 (09:29→20:54)
[2016-08-09] MEDS: METOPROLOL TARTRATE 25 MG TABLET PO SCH ×2 (09:30→20:54)
[2016-08-09] MEDS: POTASSIUM CHLORIDE 20 MEQ TABLET PO PRN (09:30)
[2016-08-09] MEDS: PANTOPRAZOLE 40 MG TABLET PO SCH (09:30)
[2016-08-09] MEDS: ENOXAPARIN 60 MG/0.6 ML SYRINGE SUBCUT SCH ×2 (09:31→20:54)
[2016-08-09] MEDS ORDERED: DIAZEPAM 5 MG TABLET PO ONE (10:42)
[2016-08-09] MEDS ORDERED: POTASSIUM CHLORIDE RIDER 10 MEQ in PREMIX 1 EACH IV PRN (10:42)
[2016-08-09] MEDS ORDERED: diphenhydrAMINE CAP 25 MG CAPSULE PO ONE (10:42)
[2016-08-09] MEDS ORDERED: LIDOCAINE 1% 20 ML VIAL ONE (11:24)
[2016-08-09] MEDS ORDERED: MIDAZOLAM 2 MG/2 ML VIAL ONE (11:36)
--- NOTE | 2016-08-09 11:40 | History and Physical Update ---
Sedation H&P Update - History and Physical H&P was reviewed, the patient examined and there: are no changes in the patients condition since last H&P was completed. (The patient had a non-STEMI. She had recurrence of pain on the right side which is like what she came in the hospital with. There is concern for postinfarction angina. Her femoral and foot pulses are normal. Lungs are clear. No bleeding in the pt's bowels, urine , or coughing up blood. No planned surgery for the next year. No contraindication to anticoagulation for a year.) - Dictation Physical: refer to H&P completed by admitting physician - Physical Exam Mental Status: alert and oriented Heart: regular rate and rhythm Lung: clear to auscultation Abdomen: within normal limits Vitals: within normal limits - Sedation Plan for Sedation: minimal ASA Class: III Airway Assessment: Class II: Soft palate, uvula, fauces visible
[2016-08-09] MEDS ORDERED: MEPERIDINE 25 MG/1 ML VIAL ONE (12:00)
[2016-08-09] MEDS ORDERED: HEPARIN 5,000 UNIT/1 ML VIAL ONE (12:19)
[2016-08-09] MEDS ORDERED: HYDROmorphone 2 MG/1 ML VIAL ONE (12:47)
[2016-08-09] MEDS ORDERED: TICAGRELOR 90 MG TABLET ONE (13:35)
--- NOTE | 2016-08-09 13:51 | Operative Note ---
Date of procedure: 08/09/16 Procedure Preformed: Left heart cath, left ventriculography, coronary arteriography, stent of the LAD , stent of the right coronary-second vessel, PTCA of the mid circumflex-third vessel, Angio-Seal of the right femoral artery, loading with Brilinta, 180 mg by mouth Surgeon / Physician: Geovanni Gray Right Of Way Agent: Milton Romero Post-op diagnosis: same (81-year-old woman with prior CVA, chronic atrial fib, presents with a non-STEMI and has had postinfarction angina.) Findings: Impression: Significant disease in the mid LAD, mid to distal circumflex, and mid right coronary artery-the circumflex was probably the infarct related vessel Mild global left ventricle systolic dysfunction with LVEF of 50% Inferobasal severe hypokinesis to akinesis 2+ MR Status post successful direct stenting of the DHH-oukp-nntlmwy stent, 2.75 x 12 mm Zions Alpine Status post successful stenting of the mid right coronary tpkoqr-qwdo-hphdhed stent, predilated with a 2.0 x 20 mm NC trek, 2.25 x 18 mm Zions Alpine Status post successful angioplasty of the mid circumflex- Angio-Seal of the right femoral artery-successful Brilinta 180 mg p.o. given at the end of the case-rebolus Plan/recommendations: The patient will have risk factors optimized. The patient will be on antiplatelet medications to include aspirin indefinitely and Plavix or Brilinta for at least a year. Follow-up will be scheduled. Addenda: I saw the patient post-cath. the groin puncture site and distal pulse are stable. vital signs are stable and the patient will be observed closely overnight. Specimens: none sent Estimated blood loss: minimal Condition: stable Anesthesia: local, conscious sedation Disposition: ICU
--- NOTE | 2016-08-09 13:56 | Cardiology Operative Report ---
Date of Procedure:: 08/09/16 Post-op diagnosis: same (81-year-old woman with prior CVA, chronic atrial fib, presents with a non-STEMI and has had postinfarction angina.) Procedure: Date of procedure: 08/09/16 Procedure Preformed: Left heart cath, left ventriculography, coronary arteriography, stent of the LAD , stent of the right coronary-second vessel, PTCA of the mid circumflex-third vessel, Angio-Seal of the right femoral artery, loading with Brilinta, 180 mg by mouth Surgeon / Physician: Geovanni Gray Doorperson Or Luggage Porter: Milton Romero Post-op diagnosis: same (81-year-old woman with prior CVA, chronic atrial fib, presents with a non-STEMI and has had postinfarction angina.) stent procedure: The patient was prepped and draped in usual manner. Entered the right femoral artery via the Seldinger technique. I used a sheath and then used a JL4 and engaged left coronary. Multiple views were taken. I then exchanged for a JR4. Multiple views of the right coronary were taken. I then exchanged for an angled pigtail. I crossed the valve. Left ventricular end-diastolic pressures measured. Left ventriculography was done. Left ventricle pullback was done. The catheters were then removed from the patient. Please see the data sheets for the details of catheters used. Intervention: Cardiovascular surgery was available for any complications. The coronary intervention was done using a JL4 guiding catheter, 0.014 run through wire,,. I placed the wire and the circumflex and dilated it with a 2.0 x 20 mm balloon. The results were favorable. After no predilatation, then placed a 2.75 x 15 mm Zions Alpine coronary stent across the lesion in the LAD.. It was deployed. Afterwards, I exchange this guide for JR4. Then placed a wire across the mid lesion of the right coronary. Predilated with a 2.0 x 20 mm NC trek. Ask predilated and then placed a 2.25 x 18 mm Zions Alpine across the mid right coronary lesion. Angiogram of the right femoral artery was done, either at that time or as a follow-through from the aortogram/left ventriculogram. Angio-Seal was done. Patient was transferred to her room on telemetry in satisfactory condition. Please see the cath report for details of the pressures, catheters, and duration of inflation. Complications: none Hemodynamic data: LVEDP see data sheet Angiographic data: The left main coronary was large and had minimal luminal irregularities. The left anterior descending artery was large. There is one major diagonal. The proximal midportion had a 70-80% narrowing. Otherwise her minimal luminal irregularities The left circumflex system was moderate. It was 1 major obtuse marginal and 1 posterior lateral branches. The mid to distal circumflex, prior to the takeoff of the small post lateral, had a 95% narrowing. Otherwise there are minimal luminal irregularities in the circumflex The right coronary artery was small to moderate in size, dominant vessel with the PDA. There was a moderate sized post lateral branch. The midportion of the vessel had a 95% narrowing. Otherwise there were minimal luminal irregularities. GOMEZ left ventriculography revealed mildly reduced global/regional left ventricular systolic function. Overall ejection fraction was at least 50%. There is 2+ mitral regurgitation. After intervention of the circumflex, there was a 40% residual. And JOHN grade III flow After direct stenting of the LAD there is a 0% residual and JOHN grade III flow. After dilating and then standing the mid right coronary, there was a 0% residual with JOHN grade III flow. Angiogram of the right femoral artery revealed the puncture site to be in a large vessel, above the bifurcation. It was suitable for Angio-Seal. Findings: Impression: Significant disease in the mid LAD, mid to distal circumflex, and mid right coronary artery-the circumflex was probably the infarct related vessel Mild global left ventricle systolic dysfunction with LVEF of 50% Inferobasal severe hypokinesis to akinesis 2+ MR Status post successful direct stenting of the PZW-ermb-vxgcrrp stent, 2.75 x 12 mm Zions Alpine Status post successful stenting of the mid right coronary jmndeg-xgdr-fdrrysh stent-- 2.25 x 18 mm Zions Alpine stent, predilated with a 2.0 x 20 mm NC trek, Status post successful angioplasty of the mid circumflex- Angio-Seal of the right femoral artery-successful Brilinta 180 mg p.o. given at the end of the case-rebolus Plan/recommendations: The patient will have risk factors optimized. The patient will be on antiplatelet medications to include aspirin indefinitely and Plavix or Brilinta for at least a year. Follow-up will be scheduled. Addenda: I saw the patient post-cath. the groin puncture site and distal pulse are stable. vital signs are stable and the patient will be observed closely overnight. Specimens: none sent Estimated blood loss: minimal Condition: stable Anesthesia: local, conscious sedation Disposition: ICU Additional CC's: Rambo Fairchild Anesthesia: local, minimal conscious sedation, other Surgeon / Physician: Geovanni Gray Doorperson Or Luggage Porter: other Estimated blood loss: minimal Specimens: none sent Condition: stable Disposition: ICU/CCU
[2016-08-09] MEDS ORDERED: TICAGRELOR 90 MG TABLET PO ONE (14:03)
[2016-08-09] MEDS: METOPROLOL SUCCINATE XL 50 MG TABLET PO SCH ×2 (14:22→20:54)
--- NOTE | 2016-08-09 14:29 | EKG Report ---
Stationary ECG Study [facility] Test Date: 08/09/2016 2:28:10 PM Pat Name: GARCIA BYRNES Department: Room: 125 Gender: F Pad Assembler: : 1935 Requested by: Geovanni Gray Order Number: [id number] Reading MD: EVITA GILL Intervals [place] Rate: 90 P: 999 [place]: 0 QRS: 69 QRSD: 76 T: 263 QT: 374 QTc: 422 Interpretive Statements ATRIAL FIBRILLATION MODERATE VOLTAGE CRITERIA FOR LVH, CONSIDER NORMAL VARIANT ST DEVIATION AND MODERATE T-WAVE ABNORMALITY, CONSIDER ANTEROLATERAL ISCHEMIA ST DEVIATION AND MODERATE T-WAVE ABNORMALITY, CONSIDER INFERIOR ISCHEMIA Electronically Signed On 08-11-16 13:19:07 LAST CHALKER by EVITA GILL [email or web address]
[2016-08-09 15:22] LABS: CKMB % 2.2 %
[2016-08-09 15:24] LABS: Troponin I Only 12.6 NG/ML (0.00-0.045)
[2016-08-09] MEDS: SODIUM CHLORIDE 0.9% 1,000 ML IV SCH (17:19)
[2016-08-09 22:23] LABS: CKMB % 2.1 %
[2016-08-09 22:40] LABS: Troponin I Only 11.6 NG/ML (0.00-0.045)
[2016-08-10] MEDS: SODIUM CHLORIDE 0.9% 1,000 ML IV SCH (04:58)
[2016-08-10 05:08] LABS: Basophils % 0.1 % (0.0-0.8); Eosinophils % 0.6 % (0.00-10.9); Hematocrit 24.5 VOL% (35.7-47.0); Hemoglobin 7.7 GM/DL (12.0-16.0); Immature Granulocytes % 0.6 %; Immature Granulocytes Absolute 0.04 #; Lymphocytes # 0.7 10*3/uL (1.4-4.0); Lymphocytes % 10.2 % (21.3-54.2); Mean Corpuscular HGB Conc 31.4 GM/DL (32-36); Mean Corpuscular Hemoglobin 23 PG (27-34); Mean Platelet Volume 10.6 FL (9.6-12.0); Monocytes # 0.5 10*3/uL (0.11-0.8); Monocytes % 7.7 % (1.7-12.7); Neutrophils # 5.5 10*3/uL (1.4-7.4); Neutrophils % 80.8 % (38.7-73.9); Platelet Count 249 10*3/uL (130-400); Red Blood Count 3.31 10*6/uL (3.8-5.5); Red Cell Distribution Width 18.1 % (9.3-17.3); White Blood Count 6.8 10*3/uL (4.5-13.71)
[2016-08-10 05:44] LABS: Calcium 7.8 MG/DL (8.5-10.1); Magnesium 2.2 MG/DL (1.8-2.4); Osmolality,Calculated 287.7 MOS/KG (273-304); Potassium 3.8 MMOL/L (3.5-5.1)
[2016-08-10 05:45] LABS: Calcium 7.7 MG/DL (8.5-10.1); Osmolality,Calculated 287.7 MOS/KG (273-304); Potassium 3.6 MMOL/L (3.5-5.1)
--- NOTE | 2016-08-10 07:28 | EKG Report ---
Stationary ECG Study [facility] Test Date: 08/10/2016 7:27:05 AM Pat Name: GARCIA BYRNES Department: Room: 125 Gender: F Irrigator Overhead: CLEVE : 1935 Requested by: Geovanni Gray Order Number: [id number] Reading MD: EVITA GILL Intervals [place] Rate: 97 P: 999 [place]: 0 QRS: 34 QRSD: 81 T: 243 QT: 352 QTc: 407 Interpretive Statements ATRIAL FIBRILLATION WITH ABERRANT CONDUCTION OR VENTRICULAR PREMATURE COMPLEXES ST DEVIATION AND MODERATE T-WAVE ABNORMALITY, CONSIDER LATERAL ISCHEMIA ST DEVIATION AND MODERATE T-WAVE ABNORMALITY, CONSIDER INFERIOR ISCHEMIA Electronically Signed On 08-11-16 13:28:39 CASINO CHANGE ATTENDANT by EVITA GILL [id number]
[2016-08-10 07:54] LABS: CKMB % 2.1 %
[2016-08-10 08:04] LABS: Troponin I Only 10.8 NG/ML (0.00-0.045)
[2016-08-10] MEDS: ATORVASTATIN 40 MG TABLET PO SCH (09:41)
[2016-08-10] MEDS: METOPROLOL TARTRATE 25 MG TABLET PO SCH (09:42)
[2016-08-10] MEDS: METOPROLOL SUCCINATE XL 50 MG TABLET PO SCH ×2 (09:43→20:57)
[2016-08-10] MEDS: PANTOPRAZOLE 40 MG TABLET PO SCH (09:43)
[2016-08-10 11:51] LABS: Basophils % 0.3 % (0.0-0.8); Eosinophils % 0.4 % (0.00-10.9); Hematocrit 25.7 VOL% (35.7-47.0); Hemoglobin 7.9 GM/DL (12.0-16.0); Immature Granulocytes % 0.3 %; Immature Granulocytes Absolute 0.02 #; Lymphocytes # 0.6 10*3/uL (1.4-4.0); Lymphocytes % 9.2 % (21.3-54.2); Mean Corpuscular HGB Conc 30.7 GM/DL (32-36); Mean Corpuscular Hemoglobin 24 PG (27-34); Mean Corpuscular Volume 76.5 FL (87-102); Mean Platelet Volume 10.5 FL (9.6-12.0); Monocytes # 0.7 10*3/uL (0.11-0.8); Monocytes % 9.4 % (1.7-12.7); Neutrophils # 5.6 10*3/uL (1.4-7.4); Neutrophils % 80.4 % (38.7-73.9); Platelet Count 240 10*3/uL (130-400); Red Blood Count 3.36 10*6/uL (3.8-5.5); Red Cell Distribution Width 18.1 % (9.3-17.3); White Blood Count 6.9 10*3/uL (4.5-13.71)
--- NOTE | 2016-08-10 12:39 | Cardiology Progress Note ---
Jagdeep Purcell Rachel, RN, am scribing for, and in the presence of, Azael Rubin MD 12:38. Assessment and Plan (1) Status post left heart catheterization (LHC) Status: Acute Assessment and plan: 08/08/16 1. 81-year-old BF who is a poor historian with controlled hypertension, chronic atrial fibrillation, reportedly multiple strokes most recently February 2014, now presents with non-STEMI with resolution of symptoms late last night in the emergency room 2. Continue Lovenox 3. Low dose beta fady with high intensity statin therapy 4. History of colon cancer and uterine mass status post hysterectomy with oophorectomy as well as right colectomy March 2014 5. Given she is a very poor historian, when he discussed with family ( currently unavailable) before considering catheterization to define her coronary anatomy 6. Check echocardiogram to evaluate for structural heart disease 08/09/16 1. PCI with successful stenting of the LAD with NORTH, stenting of the mid RCA with NORTH, and angioplasty of the mid circumflex. Angio-Seal of the right femoral artery was successful per Dr. Gray. 08/10/16 1. Status post successful three-vessel intervention as noted above, without shortness of breath or chest discomfort 2. Hematocrit trended down significantly to less than 24%; hold aspirin Brilinta as well as Lovenox with follow-up CBC at noon. She has no bleeding source noted, and heme stool test ordered 3. She can be transferred to the floor from a cardiac standpoint, she is hemodynamically stable 4. Continues high intensity statin therapy and beta fady therapy Current Visit: Yes (2) Atrial fibrillation with controlled ventricular response Status: Acute Current Visit: Yes (3) Non-STEMI (non-ST elevated myocardial infarction) Status: Acute Current Visit: Yes Cardiology - PN: Subj Interval history: Patient is status post PCI with successful stenting of the LAD with NORTH, stenting of the mid RCA with NORTH, and angioplasty of the mid circumflex. Angio- Seal of the right femoral artery was successful. Patient has done well post cath. She is without compliants this morning. She denies chest pain, SOB, and palpitations. She remains in atrial fib with controlled ventricular response ( she has chronic Atrial fib). Her current heart rate is in the 90's. Right groin is stable and without bleeding distal pulses present. H and H is low this morning at 7 and 24. No evidence of retroperitoneal bleed. She is currently asymptomatic with a blood pressure of 123/84. The nurse reports that did have minimal bleeding from right groin cath site yesterday, this is now resolved. She also got confused and pulled her vergara catheter out. Will recheck H & H at noon, Brilinta and ASA on hold for today. Exam (Progress Note) - Constitutional Vitals: Period Temp Pulse Resp BP Sys/Schmid Pulse Ox Last 24 Hr 97.2 F-98.9 F 78-104 12-23 93-131/62-87 93-100 General appearance: no acute distress - Head Head exam: Present: normal inspection, normocephalic - Respiratory Respiratory exam: Present: clear to auscultation bilaterally - Cardiovascular Cardiovascular exam: Present: irregular rhythm. Absent: bradycardia, diastolic murmur, gallop, systolic murmur, tachycardia - GI/Abdominal GI/Abdominal exam: Present: normal bowel sounds, soft. Absent: distended, tenderness - Extremities Exam Extremities exam: Present: normal inspection, normal capillary refill, other. Absent: edema - Back Exam Back exam: Present: normal inspection - Neurological Exam Neurological exam: Present: alert, oriented X3 - Skin Skin exam: Present: normal color, warm, dry Result/EKG - Labs CBC & BMP: 08/10/16 11:40 08/10/16 04:51 Lab Results: I have reviewed the past 24 hour labs Labs: Laboratory Results - last 24 hr 08/09/16 08/09/16 08/10/16 14:23 21:53 04:51 WBC RBC Hgb Hct MCV MCH MCHC RDW Plt Count MPV Neut % (Auto) Lymph % (Auto) Wise % (Auto) Eos % (Auto) Baso % (Auto) Neut # (Auto) Lymph # (Auto) Wise # (Auto) Eos # (Auto) Baso # (Auto) Immature Gran % Nucleated RBC % Immature Gran # Nucleated RBCs # Sodium 145 Potassium 3.6 Chloride 111 H Carbon Dioxide 24 Anion Gap 13.6 BUN 16 Creatinine 0.70 GFR Calculation 81 BUN/Creatinine Ratio 22.00 H Glucose 86 Calculated Osmolality 287.7 Calcium 7.7 L Magnesium Total Creatine Kinase 365 H D 295 H CK-MB (CK-2) 8.2 H D 6.3 H CK and CKMB Interp 2.2 2.1 Troponin I 12.600 H D 11.600 H 08/10/16 08/10/16 08/10/16 04:51 04:51 07:00 WBC 6.8 D RBC 3.31 L Hgb 7.7 L D Hct 24.5 L MCV 74.0 L MCH 23 L MCHC 31.4 L RDW 18.1 H Plt Count 249 MPV 10.6 Neut % (Auto) 80.8 H Lymph % (Auto) 10.2 L Wise % (Auto) 7.7 Eos % (Auto) 0.6 Baso % (Auto) 0.1 Neut # (Auto) 5.5 Lymph # (Auto) 0.7 L Wise # (Auto) 0.5 Eos # (Auto) 0.0 Baso # (Auto) 0.0 Immature Gran % 0.6 Nucleated RBC % 0.0 Immature Gran # 0.04 Nucleated RBCs # 0.00 Sodium 145 Potassium 3.8 Chloride 111 H Carbon Dioxide 23 Anion Gap 14.8 BUN 16 Creatinine 0.70 GFR Calculation 81 BUN/Creatinine Ratio 22.00 H Glucose 86 Calculated Osmolality 287.7 Calcium 7.8 L Magnesium 2.2 Total Creatine Kinase 290 H CK-MB (CK-2) 6.2 H CK and CKMB Interp 2.1 Troponin I 10.800 H - EKG EKG results: interpreted by me EKG shows: atrial fibrillation Quality Measures - VTE Contraindication to Pharmacological VTE Prophylaxis: High Risk of Bleeding Specialty Discharge - Follow Up or Referrals Scottie Purcell Randall Scott, MD, personally performed the services described in this documentation, ascribed by Ebonie Gannon RN in my presence, and it is both accurate and complete [id number] .
[2016-08-10] MEDS ORDERED: ASPIRIN CHEW 81 MG TABLET PO SCH (13:30)
[2016-08-10] MEDS ORDERED: CLOPIDOGREL 300 MG TABLET PO ONE (18:00)
[2016-08-11 06:04] LABS: Osmolality,Calculated 288.7 MOS/KG (273-304); Potassium 3.6 MMOL/L (3.5-5.1)
--- NOTE | 2016-08-11 07:47 | EKG Report ---
Stationary ECG Study [facility] Test Date: 08/11/2016 7:45:42 AM Pat Name: GARCIA BYRNES Department: Room: 285 Gender: F Form Builder: : 1935 Requested by: Geovanni Gray Order Number: [id number] Reading MD: EVITA GILL Intervals [place] Rate: 81 P: 999 [place]: 0 QRS: 59 QRSD: 80 T: -84 QT: 363 QTc: 400 Interpretive Statements ATRIAL FIBRILLATION ST DEVIATION AND MODERATE T-WAVE ABNORMALITY, CONSIDER ANTEROLATERAL ISCHEMIA ST DEVIATION AND MODERATE T-WAVE ABNORMALITY, CONSIDER INFERIOR ISCHEMIA Electronically Signed On 08-11-16 14:11:20 PHARMACOLOGY ASSOCIATE by EVITA GILL [email or web address]
[2016-08-11 08:40] LABS: Basophils % 0.2 % (0.0-0.8); Eosinophils # 0.1 10*3/uL (0.0-0.87); Hematocrit 25.3 VOL% (35.7-47.0); Hemoglobin 7.7 GM/DL (12.0-16.0); Immature Granulocytes % 0.2 %; Immature Granulocytes Absolute 0.01 #; Lymphocytes # 0.6 10*3/uL (1.4-4.0); Lymphocytes % 12.4 % (21.3-54.2); Mean Corpuscular HGB Conc 30.4 GM/DL (32-36); Mean Corpuscular Hemoglobin 23 PG (27-34); Mean Corpuscular Volume 75.3 FL (87-102); Mean Platelet Volume 10.9 FL (9.6-12.0); Monocytes # 0.4 10*3/uL (0.11-0.8); Monocytes % 7.3 % (1.7-12.7); Neutrophils # 3.8 10*3/uL (1.4-7.4); Neutrophils % 78.9 % (38.7-73.9); Platelet Count 259 10*3/uL (130-400); Red Blood Count 3.36 10*6/uL (3.8-5.5); Red Cell Distribution Width 18.1 % (9.3-17.3); White Blood Count 4.8 10*3/uL (4.5-13.71)
[2016-08-11] MEDS: CLOPIDOGREL 75 MG TABLET PO SCH (10:02)
[2016-08-11] MEDS: PANTOPRAZOLE 40 MG TABLET PO SCH (10:03)
[2016-08-11] MEDS: ATORVASTATIN 40 MG TABLET PO SCH (10:03)
[2016-08-11] MEDS: ASPIRIN EC 81 MG TABLET PO SCH (10:03)
[2016-08-11] MEDS: METOPROLOL SUCCINATE XL 50 MG TABLET PO SCH ×2 (10:03→21:01)
[2016-08-11] MEDS ORDERED: SODIUM CHLORIDE 0.9% 250 ML IV PRN (13:38)
[2016-08-11] MEDS ORDERED: FUROSEMIDE 20 MG/2 ML VIAL IV ONE (13:39)
[2016-08-11] MEDS: [UNRECOGNIZED DRUG - SUPPLY] MISC SCH ×2 (15:29→17:25)
[2016-08-12] MEDS ORDERED: FUROSEMIDE 20 MG/2 ML VIAL IV ONE (02:00)
[2016-08-12 04:42] LABS: Basophils % 0.2 % (0.0-0.8); Eosinophils # 0.1 10*3/uL (0.0-0.87); Eosinophils % 1.3 % (0.00-10.9); Hematocrit 34.9 VOL% (35.7-47.0); Hemoglobin 10.8 GM/DL (12.0-16.0); Immature Granulocytes % 0.2 %; Immature Granulocytes Absolute 0.01 #; Lymphocytes # 0.7 10*3/uL (1.4-4.0); Lymphocytes % 13.6 % (21.3-54.2); Mean Corpuscular HGB Conc 30.9 GM/DL (32-36); Mean Corpuscular Hemoglobin 23 PG (27-34); Mean Corpuscular Volume 74.6 FL (87-102); Mean Platelet Volume 10.6 FL (9.6-12.0); Monocytes # 0.5 10*3/uL (0.11-0.8); Monocytes % 9.3 % (1.7-12.7); Neutrophils % 75.4 % (38.7-73.9); Platelet Count 256 10*3/uL (130-400); Red Blood Count 4.68 10*6/uL (3.8-5.5); Red Cell Distribution Width 18.8 % (9.3-17.3); White Blood Count 5.4 10*3/uL (4.5-13.71)
[2016-08-12 05:08] LABS: Calcium 8.4 MG/DL (8.5-10.1); Osmolality,Calculated 293.4 MOS/KG (273-304); Potassium 3.5 MMOL/L (3.5-5.1)
--- NOTE | 2016-08-12 08:18 | EKG Report ---
Stationary ECG Study [facility] Test Date: 08/12/2016 8:18:13 AM Pat Name: GARCIA BYRNES Department: Room: 285 Gender: F Certified Lactation Educator: MARCELLUS : 1935 Requested by: Rylee Gray Order Number: [id number] Reading MD: RYLEE GRAY Intervals [place] Rate: 71 P: 999 [place]: 0 QRS: 68 QRSD: 80 T: 270 QT: 428 QTc: 451 Interpretive Statements ATRIAL FIBRILLATION ST DEVIATION AND MODERATE T-WAVE ABNORMALITY, CONSIDER LATERAL ISCHEMIA ST DEVIATION AND MODERATE T-WAVE ABNORMALITY, CONSIDER INFERIOR ISCHEMIA Electronically Signed On 08-12-16 09:20:59 CEMENTER MACHINE by RYLEE GRAY [email or web address]
[2016-08-12] MEDS: ASPIRIN EC 81 MG TABLET PO SCH (09:05)
[2016-08-12] MEDS: CLOPIDOGREL 75 MG TABLET PO SCH (09:05)
[2016-08-12] MEDS: METOPROLOL SUCCINATE XL 50 MG TABLET PO SCH ×2 (09:05→21:22)
[2016-08-12] MEDS: PANTOPRAZOLE 40 MG TABLET PO SCH (09:05)
[2016-08-12] MEDS: ATORVASTATIN 40 MG TABLET PO SCH (09:05)
--- NOTE | 2016-08-12 12:33 | Cardiology Progress Note ---
Alek Purcell Vanessa, RN, am scribing for, and in the presence of, Azael Rubin MD 12:33. Assessment and Plan - Time spent with patient Time spent with patient: Less than 30 minutes (1) Atrial fibrillation with controlled ventricular response Status: Acute Assessment and plan: 08/08/16 1. 81-year-old BF who is a poor historian with controlled hypertension, chronic atrial fibrillation, reportedly multiple strokes most recently February 2014, now presents with non-STEMI with resolution of symptoms late last night in the emergency room 2. Continue Lovenox 3. Low dose beta fady with high intensity statin therapy 4. History of colon cancer and uterine mass status post hysterectomy with oophorectomy as well as right colectomy March 2014 5. Given she is a very poor historian, when he discussed with family ( currently unavailable) before considering catheterization to define her coronary anatomy 6. Check echocardiogram to evaluate for structural heart disease 08/09/16 1. PCI with successful stenting of the LAD with NORTH, stenting of the mid RCA with NORTH, and angioplasty of the mid circumflex. Angio-Seal of the right femoral artery was successful per Dr. Gray. 08/10/16 1. Status post successful three-vessel intervention as noted above, without shortness of breath or chest discomfort 2. Hematocrit trended down significantly to less than 24%; hold aspirin Brilinta as well as Lovenox with follow-up CBC at noon. She has no bleeding source noted, and heme stool test ordered 3. She can be transferred to the floor from a cardiac standpoint, she is hemodynamically stable 4. Continues high intensity statin therapy and beta fady therapy 08/11/2016: (late entry August 12) 1. Continues to be chest pain-free since three-vessel intervention, probably some dyspnea I'll little confusion this morning (suspect some baseline dementia , as she keeps trying to walk the door to keep people out, although she seems calm) 2. Status post prepped blood cell transfusion for hematocrit around 25% 3. Hemodynamic stable 4. Continue high intensity statin and beta fady therapy 5. Check morning hematocrit and follow to ensure no bleeding (do not suspect) Current Visit: Yes (2) Non-STEMI (non-ST elevated myocardial infarction) Status: Acute Current Visit: Yes (3) Cataract Status: Resolved Current Visit: No Cardiology - PN: Subj Interval history: Awake and alert but pleasantly confused. Sitting on side of bed eating lunch. Denies discomfort, shortness of breath, or other problem at this time. Continues to do well post 3 vessel PCI on 08/09. H/H is low but stable at 7.7 & 25.3. Will receive 1 unit PRBC today. No occult stool results at this time. Atrial fib with HR in 80's-90's per tele monitoring. SBP is 100-110 mmHg range. Exam (Progress Note) - Constitutional Vitals: Period Temp Pulse Resp BP Sys/Schmid Pulse Ox Last 24 Hr 97.1 F-98.9 F 77-107 18-20 97-122/61-74 96-99 General appearance: normal weight, no acute distress - Head Head exam: Present: normocephalic - Eye Eye exam: Absent: periorbital swelling Pupils: Absent: dilated, fixed - ENT ENT exam: Present: normal external ear exam - Neck Neck exam: Present: normal inspection. Absent: tenderness - Respiratory Respiratory exam: Present: clear to auscultation bilaterally. Absent: rales, rhonchi, stridor, wheezes - Cardiovascular Cardiovascular exam: Present: irregular rhythm. Absent: bradycardia, regular rate and rhythm, tachycardia - GI/Abdominal GI/Abdominal exam: Present: normal bowel sounds. Absent: ascites, distended, firm, soft - Extremities Exam Extremities exam: Present: full ROM. Absent: calf tenderness, edema - Back Exam Back exam: Present: normal inspection - Neurological Exam Neurological exam: Present: other (pleasantly confused) - Psychiatric Psychiatric exam: Present: normal affect, normal mood. Absent: agitated, anxious - Skin Skin exam: Present: warm, dry. Absent: abrasion, cyanosis, intact Result/EKG - Labs CBC & BMP: 08/12/16 04:29 08/12/16 04:29 Lab Results: I have reviewed the past 24 hour labs Labs: Laboratory Results - last 24 hr 08/11/16 08/11/16 05:18 08:22 WBC 4.8 D RBC 3.36 L Hgb 7.7 L Hct 25.3 L MCV 75.3 L MCH 23 L MCHC 30.4 L RDW 18.1 H Plt Count 259 MPV 10.9 Neut % (Auto) 78.9 H Lymph % (Auto) 12.4 L [place] % (Auto) 7.3 Eos % (Auto) 1.0 Baso % (Auto) 0.2 Neut # (Auto) 3.8 Lymph # (Auto) 0.6 L [place] # (Auto) 0.4 Eos # (Auto) 0.1 Baso # (Auto) 0.0 Immature Gran % 0.2 Nucleated RBC % 0.0 Immature Gran # 0.01 Nucleated RBCs # 0.00 Sodium 145 Potassium 3.6 Chloride 110 H Carbon Dioxide 24 Anion Gap 14.6 BUN 16 Creatinine 0.80 GFR Calculation 69 BUN/Creatinine Ratio 20.00 Glucose 97 Calculated Osmolality 288.7 Calcium 8.0 L - EKG EKG results: interpreted by me EKG shows: atrial fibrillation (pulse rate 90's) Quality Measures - VTE Contraindication to Pharmacological VTE Prophylaxis: High Risk of Bleeding Specialty Discharge - Follow Up or Referrals Scottie Purcell Randall Scott, MD, personally performed the services described in this documentation, ascribed by Ute Gaston RN in my presence, and it is both accurate and complete .
--- NOTE | 2016-08-12 12:35 | Cardiology Progress Note ---
Assessment and Plan (1) Atrial fibrillation with controlled ventricular response Status: Acute Assessment and plan: 08/08/16 1. 81-year-old BF who is a poor historian with controlled hypertension, chronic atrial fibrillation, reportedly multiple strokes most recently February 2014, now presents with non-STEMI with resolution of symptoms late last night in the emergency room 2. Continue Lovenox 3. Low dose beta fady with high intensity statin therapy 4. History of colon cancer and uterine mass status post hysterectomy with oophorectomy as well as right colectomy March 2014 5. Given she is a very poor historian, when he discussed with family ( currently unavailable) before considering catheterization to define her coronary anatomy 6. Check echocardiogram to evaluate for structural heart disease 08/09/16 1. PCI with successful stenting of the LAD with NORTH, stenting of the mid RCA with NORTH, and angioplasty of the mid circumflex. Angio-Seal of the right femoral artery was successful per Dr. Gray. 08/10/16 1. Status post successful three-vessel intervention as noted above, without shortness of breath or chest discomfort 2. Hematocrit trended down significantly to less than 24%; hold aspirin Brilinta as well as Lovenox with follow-up CBC at noon. She has no bleeding source noted, and heme stool test ordered 3. She can be transferred to the floor from a cardiac standpoint, she is hemodynamically stable 4. Continues high intensity statin therapy and beta fady therapy 08/11/2016: (late entry August 12) 1. Continues to be chest pain-free since three-vessel intervention, probably some dyspnea I'll little confusion this morning (suspect some baseline dementia , as she keeps trying to walk the door to keep people out, although she seems calm) 2. Status post prepped blood cell transfusion for hematocrit around 25% 3. Hemodynamic stable 4. Continue high intensity statin and beta fady therapy 5. Check morning hematocrit and follow to ensure no bleeding (do not suspect) 08/12/2016: 1. Mrs. Schneider is doing very well clinically and has no evidence of blood loss after transfusion yesterday 2. Hemodynamically stable 3. Check hematocrit in the morning to make sure it is stable 4. She is doing well and has stable hematocrit, would plan discharge tomorrow 5. Continue baby aspirin and Plavix (previously was on Brilinta) Current Visit: Yes (2) Non-STEMI (non-ST elevated myocardial infarction) Status: Acute Current Visit: Yes (3) Cataract Status: Resolved Current Visit: No Cardiology - PN: Subj Interval history: Mrs. Schneider has mild abdominal discomfort intermittently. She passed her bowels yesterday. She has no gross blood loss. She is not having any chest pain or shortness of breath today. Exam (Progress Note) - Constitutional Vitals: Period Temp Pulse Resp BP Sys/Schmid Pulse Ox Last 24 Hr 97 F-98.7 F 66-98 16-20 92-140/52-81 92-95 General appearance: no acute distress, under weight - Head Head exam: Present: normal inspection, normocephalic, atraumatic - Neck Neck exam: Present: normal inspection - Respiratory Respiratory exam: Present: rales. Absent: wheezes - Cardiovascular Cardiovascular exam: Present: regular rate and rhythm. Absent: diastolic murmur , rubs - GI/Abdominal GI/Abdominal exam: Present: soft. Absent: tenderness - Extremities Exam Extremities exam: Absent: edema Result/EKG - Labs CBC & BMP: 08/12/16 04:29 08/12/16 04:29 Labs: Laboratory Results - last 24 hr 08/11/16 08/11/16 08/11/16 08:18 08:18 13:46 WBC RBC Hgb Hct MCV MCH MCHC RDW Plt Count MPV Neut % (Auto) Lymph % (Auto) Wink[place] % (Auto) Eos % (Auto) Baso % (Auto) Neut # (Auto) Lymph # (Auto) [place]ink[place] # (Auto) Eos # (Auto) Baso # (Auto) Immature Gran % Nucleated RBC % Immature Gran # Nucleated RBCs # Sodium Potassium Chloride Carbon Dioxide Anion Gap BUN Creatinine GFR Calculation BUN/Creatinine Ratio Glucose Calculated Osmolality Calcium Blood Type O POSITIVE Cancelled O POSITIVE Antibody Screen Negative Cancelled Crossmatch See Detail See Detail Blood Bank Comment Cancelled 08/12/16 08/12/16 04:29 04:29 WBC 5.4 RBC 4.68 D Hgb 10.8 L D Hct 34.9 L MCV 74.6 L MCH 23 L MCHC 30.9 L RDW 18.8 H Plt Count 256 MPV 10.6 Neut % (Auto) 75.4 H Lymph % (Auto) 13.6 L Winkler % (Auto) 9.3 Eos % (Auto) 1.3 Baso % (Auto) 0.2 Neut # (Auto) 4.0 Lymph # (Auto) 0.7 L Winkler # (Auto) 0.5 Eos # (Auto) 0.1 Baso # (Auto) 0.0 Immature Gran % 0.2 Nucleated RBC % 0.0 Immature Gran # 0.01 Nucleated RBCs # 0.00 Sodium 147 H Potassium 3.5 Chloride 108 H Carbon Dioxide 27 Anion Gap 15.5 H BUN 19 H Creatinine 0.90 GFR Calculation 56 BUN/Creatinine Ratio 21.00 H Glucose 96 Calculated Osmolality 293.4 Calcium 8.4 L Blood Type Antibody Screen Crossmatch Blood Bank Comment Quality Measures - VTE Contraindication to Pharmacological VTE Prophylaxis: High Risk of Bleeding Specialty Discharge - Follow Up or Referrals
[2016-08-13 04:33] LABS: Basophils % 0.4 % (0.0-0.8); Eosinophils # 0.2 10*3/uL (0.0-0.87); Eosinophils % 3.9 % (0.00-10.9); Hematocrit 31.9 VOL% (35.7-47.0); Hemoglobin 10.1 GM/DL (12.0-16.0); Immature Granulocytes % 0.2 %; Immature Granulocytes Absolute 0.01 #; Lymphocytes # 0.9 10*3/uL (1.4-4.0); Lymphocytes % 16.8 % (21.3-54.2); Mean Corpuscular HGB Conc 31.7 GM/DL (32-36); Mean Corpuscular Hemoglobin 23 PG (27-34); Mean Platelet Volume 11.3 FL (9.6-12.0); Monocytes # 0.7 10*3/uL (0.11-0.8); Monocytes % 14.1 % (1.7-12.7); NRBC # 0.03 10*3/uL; Neutrophils # 3.4 10*3/uL (1.4-7.4); Neutrophils % 64.6 % (38.7-73.9); Platelet Count 209 10*3/uL (130-400); Red Blood Count 4.31 10*6/uL (3.8-5.5); Red Cell Distribution Width 18.4 % (9.3-17.3); White Blood Count 5.2 10*3/uL (4.5-13.71)
[2016-08-13 07:07] LABS: Hypochromasia 1+; Target Cells Slight
[2016-08-13 08:00] VITALS: BP 150/87
[2016-08-13] MEDS: ASPIRIN EC 81 MG TABLET PO SCH (08:29)
[2016-08-13] MEDS: PANTOPRAZOLE 40 MG TABLET PO SCH (08:29)
[2016-08-13] MEDS: CLOPIDOGREL 75 MG TABLET PO SCH (08:29)
[2016-08-13] MEDS: ATORVASTATIN 40 MG TABLET PO SCH (08:29)
[2016-08-13] MEDS: METOPROLOL SUCCINATE XL 50 MG TABLET PO SCH (08:29)
[2016-08-13] MEDS: [UNRECOGNIZED DRUG - SUPPLY] MISC SCH (10:27)
--- NOTE | 2016-08-13 10:33 | Discharge Summary ---
Hospital Course - Hospital Course Hospital Course: Mrs. Schneider presented with non-STEMI with resolution of chest pain. Her troponin was quite high over 50 maximum. Her mental status was in question initially without family around. She probably does have a bit of undiagnosed dementia, but is limited by expressive aphasia with multiple strokes most recently 2013. She eventually underwent heart catheterization and three-vessel critical disease with thrombus in her mid circumflex which was angioplastied restoring JOHN-3 flow (previously JOHN IIb), with stenting of critical LAD and RCA disease with drug-eluting stents. She had significant drop in her hematocrit requiring blood transfusion. She is now back on Plavix and aspirin with stable hematocrit of greater than 30 the last 2 days. She's had no evidence of overt bleeding. Of note her echocardiogram showed ejection fraction of 60% with 4+ left atrial enlargement. She appears to have chronic atrial fibrillation for years, reportedly not on anticoagulation due to bleeding, possibly with previous falls?. She is asymptomatic and at this point I believe she is received maximal benefit. Her right groin access has looked good. I discussed her need to take a baby aspirin Plavix without fail. Her family was present during the discussion. Diagnosis - Discharge Diagnosis (1) Atrial fibrillation with controlled ventricular response Status: Acute (2) Non-STEMI (non-ST elevated myocardial infarction) Status: Acute Specialty Discharge - Follow Up or Referrals Follow up with: Azael Rubin MD [Physician] - 1 Week (With EKG FLP CMP CBC) Discharge Plan - Discharge Medications No Action Pantoprazole Tab [Protonix Tab] 40 mg PO DAILY Aspirin [Ecotrin] 81 mg PO DAILY Folic Acid 1 mg MC DAILY Vitamin B Complex 100 mg PO DAILY Clindamycin Cap [Cleocin Cap] 300 mg PO Q8HR #30 capsule Comp.stocking,Knee,Regular,Sml [Compression Stocking] 1 each MISC DIRECTED #2 each Ondansetron Odt Tab [Zofran Odt] 4 mg PO Q4H #30 tablet - Follow Up or Referral - Forms/Instructions Instructions: Myocardial Infarction (GEN), Coronary Artery Disease (GEN), Heart Healthy Diet (GEN) Exam - Constitutional Vitals: Period Temp Pulse Resp BP Sys/Schmid Pulse Ox Last 24 Hr 97 F-98.6 F 58-80 16-20 128-150/64-87 90-97 General appearance: no acute distress, under weight - Head Head exam: Present: normal inspection, normocephalic, atraumatic - Neck Neck exam: Present: normal inspection - Respiratory Respiratory exam: Absent: rales, stridor, wheezes - Cardiovascular Cardiovascular exam: Present: regular rate and rhythm. Absent: diastolic murmur , rubs - GI/Abdominal GI/Abdominal exam: Present: soft. Absent: tenderness - Extremities Exam Extremities exam: Absent: edema Discharge Results Procedures and tests throughout hospitalization: Pending Orders 08/10/16 07:04 Occult Blood, Stool Routine Labs on day of discharge: Labs from last 24 hours 08/13/16 04:20 WBC 5.2 RBC 4.31 Hgb 10.1 L Hct 31.9 L MCV 74.0 L MCH 23 L MCHC 31.7 L RDW 18.4 H Plt Count 209 MPV 11.3 Neut % (Auto) 64.6 Lymph % (Auto) 16.8 L [place] % (Auto) 14.1 H Eos % (Auto) 3.9 Baso % (Auto) 0.4 Neut # (Auto) 3.4 Lymph # (Auto) 0.9 L [place] # (Auto) 0.7 Eos # (Auto) 0.2 Baso # (Auto) 0.0 Immature Gran % 0.2 Nucleated RBC % 0.6 Immature Gran # 0.01 Nucleated RBCs # 0.03 Hypochromasia 1+ Target Cells Slight DS: Provider Date of admission: 08/07/16 22:34 Primary care physician: . No PCP Attending physician on admission: Azael Siddiqi Consults: 08/07/16 23:31 Consult to Pharmacy [CONS] Routine Reason for Pharmacy Consult: Adjust Meds Renal Funct 08/08/16 06:52 Consult to Cardiac Rehabilitation [CONS] Routine Reason for Cardiac Rehabilitation: Risk Factor Modification 08/11/16 13:46 Consult to Physical Therapy [CONS] Routine Reason for Physical Therapy: Evaluate and Treat Consult Comment: patient needs a walker Discharging clinician: Azael Siddiqi
== END 2016-08-13 14:20 | disposition home or self-care (01) | DRG 247 ==
LOC: EDBD → EDUNIT# → N.ED 20:22 → N.EDINP 22:34 → N.CC 23:21 → N.TELEN 08-10 15:33
PROVIDERS: ADMIT Internal Medicine Cardiovascular Disease; ATTEND Internal Medicine Cardiovascular Disease
PROC: CLCCHCL (ICD-10-PCS; 2016-08-09 11:45)

== ENCOUNTER 2016-11-29 11:45 | Inpatient (IN) ==
[2016-11-29] MEDS ORDERED: ALBUTEROL 2.5 MG/3 ML NEB RESP TX STA (12:24)
--- NOTE | 2016-11-29 12:47 | Emergency Department Note ---
Gwendolyn Purcell Gwan, am scribing for, and in the presence of, Pete Curran MD 12:26 . Bina Purcell James D, MD, personally performed the services described in this documentation, ascribed by Lizette Snow in my presence, and it is both accurate and complete 246 . Arrival - Arrival Chief Complaint: Altered Mental Status Stated Complaint: possible stroke/brought from Dr Fairchild ED Nursing Triage Note: Pt sent from Dr Fairchild's office for altered LOC x 2 days. Pt is non-verbal at triage. Pulse OX would not pickle solution maker in triage. Mode of Arrival: Wheelchair Limitations: No Limitations Source: Patient, Old Records Reviewed, RN Notes Reviewed - History of Present Illness HPI Narrative: Pt is a 81 y/o female who presents to the ED via Dr. Fairchild's office for further evaluation of altered LOC with an onset 2 days ago. At triage, pt is non -verbal. Patient family stated that pt baseline is very verbal and that the last time she spoke to anyone was this am. Family confirmed that pt has been SOB , has a previous SHx of smoking cigarettes, that since CVA in 2013 pt has had some weakness to the left side and that pt stated that she has had some pain to her right side. Family denies N/V/D. Onset (ago): day(s) Consistency: constant Severity: moderate Allergies/Adverse Reactions: Allergies Allergy/AdvReac Type Severity Reaction Status Date / Time Penicillins Allergy Intermediate Unknown/Unable Verified 07/22/16 10:33 to obtain Sulfa (Sulfonamide Allergy Mild Unknown/Unable Verified 07/22/16 10:33 Antibiotics) to obtain surgical tape Allergy Intermediate Redness of Uncoded 07/22/16 10:33 Skin and severe peeling at site Home Medications: Home Medications Medication Instructions Recorded Confirmed Type Aspirin [Ecotrin] 81 mg PO QAM 10/26/14 11/29/16 History Pantoprazole Tab [Protonix Tab] 40 mg PO QAM 10/26/14 11/29/16 History Nitroglycerin Sl Tab [Nitrostat] 0.4 mg SL Q5M PRN #30 tablet 08/13/16 11/29/16 Rx Atorvastatin [Lipitor] 40 mg PO QAM 11/29/16 11/29/16 History Cholecalciferol (Vitamin D3) 2,000 unit PO QAM 11/29/16 11/29/16 History [Vitamin D3] Clopidogrel [Plavix] 75 mg PO QAM 11/29/16 11/29/16 History Metoprolol Tartrate 25 mg PO BID W/MEALS 11/29/16 11/29/16 History Tramadol HCl [Tramadol Tab] 50 mg PO Q6H PRN 11/29/16 11/29/16 History Ursodiol [Ursodiol] 300 mg PO BID 11/29/16 11/29/16 History Review of System - Review of System ROS unobtainable: due to mental status Medical,Surgical,& Family Hx - Medical History Cardio: History of: Cardiac Dysrhythmia (ATRIAL FIBRILATION), Cardiovascular Problems (LOW BLOOD PRESSURE) No history of: Aneurysm, Cerebrovascular Disease, Congenital Heart Disease, CHF, CAD, Hypertension, Pacemaker, PVD, Valvular Heart Disease Neurology: History of: Cerebrovascular Accident (2013) No history of: Seizures HEENT: History of: Eye Problem (BLURRY VISION) No history of: Ear Problem, Dental Problems, Glaucoma, Oral Cancer Endocrine: No history of: Adrenal Disease, Diabetes Mellitus (IDDM), Diabetes Mellitus ( NIDDM), Dyslipidemia, Thyroid Disorder, Endocrine Cancer, Endocrine Problems Rheumatology: No history of;: Psoriasis, Sjogrens, Systemic Lupus Erythematosus Respiratory: No history of: Asthma, Bronchitis, COPD, Intubation, Obstructive Sleep Apnea , Pulmonary Embolism, Pulmonary Hypertension, Pneumonia, Lung Cancer, Respiratory Problems Renal: No history of: Renal (Kidney) Cancer, Dialysis, Renal Failure Genitourinary: No history of: Bladder Problem, Kidney Stones, Recurring Urinary Tract Infections, Genitourinary Cancer, Problems Gastrointestinal: History of: GI Problems (COLON CANCER SURGERY MAR 2014) Musculoskeletal: History of: Osteoporosis No history of: Amputation Hematology: History of: Bleeding Problems (PAST HISTORY OF BLOOD LOSS) No history of: Blood Transfusion Reaction Reproductive: No history of: Abnormal Pap Smear, Breast Cancer, Endometriosis, Ectopic , Ovarian Cysts, Complication, Sexually Transmitted Disorders , Reproductive Cancer, Reproductive Problems Other: History of: Eczema No history of: Anesthesia Reactions, Anaphylaxis, Malignant Hyperthermia, MRSA, Vancomycin-Resistant Enterococci, Skin Problems, Miscellaneous Medical Problems Comment Only: Cancer (COLON CANCER) - Surgical History Cardiac Surgeries: Patient Denies: Femoral-Popliteal Bypass Graft, Cardiac Catheterization, Cardiac Surgery, Carotid Endarterectomy, Internal Defibrillator, Vascular Access Devices Thoracic Surgeries: Patient denies;: Kidney (Renal Surgery), Lithotripsy, Nephrectomy, Organ Transplant, Lobectomy Neurologic Surgeries: Patient denies: Neurologic Surgery HEENT Surgeries: Surgical HX of: Eye Surgery (RIGHT EYE CATARACT) Patient denies: Carotid Endarterectomy, Thyroid Surgery, Tonsilectomy & Adenoidectomy Abdominal Surgeries: Surgical HX of: Abdominal Surgery (PT STATES BLOCKAGE IN STOMACH), Colonoscopy Patient denies: Appendectomy, Cholecystectomy, Gastric Bypass Surgery, EGD, Hernia Repair, Splenectomy Reproductive Surgeries: Patient denies;: Breast Surgery, Cystoscopy, Genitourinary Surgery, Gynecologic Surgery Orthopedic Surgeries: Patient denies;: Implanted Devices, Orthopedic Surgery, Spinal Surgery, Total Hip Replacement, Total Knee Replacement - Family History Family History: Reports;: Family Diabetes (DAUGHTER, AND SON AND GRANDSON AND 2 SISTERS), Family Hypertension (DAUGHTER, SISTER), Family Stroke (SON, DAUGHTER) Denies;: Family Anesthesia Reaction, Family Cancer, Family Heart Disease, Family Psychiatric Problems - Social History Smoking Status: Former smoker Exam Physical Examination: GENERAL: This is a non-verbal black female in no apparent distress. VITAL SIGNS: HEENT: Head is normocephalic and atraumatic. Pupils are equally round and reactive to light. Extraocular movement are intact. Oropharynx is benign with moist mucous membranes. Patient has a protruding tongue right of the midline. NECK: Neck is soft and supple without tenderness. There are no masses. There is no lymphadenopathy. LUNGS: Lungs are clear to auscultation bilaterally. Chest rises symmetrically. There is no chest wall tenderness. CV: Heart is regular rate and rhythm without murmurs, rubs, or gallops. ABDOMEN: Abdomen is soft, non-tender to palpation. There are no abnormal masses palpated. There is no organomegaly. Bowel sounds are present and active. SKIN: Skin is warm and dry. No rash. EXTREMITIES: Patient has full range of motion without tenderness. There is +2 pitting edema to bilateral LE. NEUROLOGIC: Awake, alert, and oriented x4. Cranial nerves III through V are grossly intact. There are no motorsensory deficits. PSYCHIATRIC: Normal affect. Normal mood. Vital Signs: Vital Signs Temperature 97.6 F 11/29/16 11:50 Respiratory Rate 18 11/29/16 11:50 Blood Pressure 133/85 05/10/17 11:50 Course - Consultations Consultation #1: Discussed with hospitalist. Patient will be admitted to their service. Time: 14:19 Results - Labs CBC & BMP: 11/29/16 13:31 11/29/16 13:06 Lab Results: I have reviewed the patients labs Labs: Laboratory Tests 11/29/16 11/29/16 11/29/16 13:06 13:31 13:31 WBC 4.4 RBC 3.63 L Hgb 7.6 L Hct 24.5 L MCV 67.5 L MCH 21 L MCHC 31.0 L RDW 19.9 H Plt Count 273 Neut % (Auto) 81.9 H Lymph % (Auto) 10.4 L Lymph # (Auto) 0.5 L INR 1.2 PT Patient/Control Mix 12.8 Circ Anticoag PTT 21.3 Sodium 143 Potassium 4.3 Chloride 110 H Carbon Dioxide 25 BUN 39 H Creatinine 1.20 H BUN/Creatinine Ratio 32.00 H AST 61 H Alkaline Phosphatase 118 H Total Protein 6.0 L Albumin 2.9 L Albumin/Globulin Ratio 0.9 L Urine pH Ur Specific [place] Urine Ketones Urine Urobilinogen Urine RBC Urine WBC Hyaline Casts Urine Opiates Screen Ur Barbiturates Screen Ur Phencyclidine Scrn U Amphetamine/Methamph U Benzodiazepines Scrn U Cocaine Metab Screen U Cannabinoids Screen 11/29/16 11/29/16 13:36 13:36 WBC RBC Hgb Hct MCV MCH MCHC RDW Plt Count Neut % (Auto) Lymph % (Auto) Lymph # (Auto) INR PT Patient/Control Mix Circ Anticoag PTT Sodium Potassium Chloride Carbon Dioxide BUN Creatinine BUN/Creatinine Ratio AST Alkaline Phosphatase Total Protein Albumin Albumin/Globulin Ratio Urine pH 6.0 Ur Specific [place] 1.020 Urine Ketones 5 Urine Urobilinogen < 2.0 H Urine RBC 3 Urine WBC 2 Hyaline Casts 3 Urine Opiates Screen Negative Ur Barbiturates Screen Negative Ur Phencyclidine Scrn Negative U Amphetamine/Methamph Negative U Benzodiazepines Scrn Negative U Cocaine Metab Screen Negative U Cannabinoids Screen Positive H - EKG EKG results: interpreted by [facility] - Diagnostic Findings Procedure: Chest x-ray: image reviewed by me, CT: image reviewed by me (CT head : Cerebral atrophy. No acute intracranial lesion or hemorrhage.) Disposition Clinical Impression: Altered mental status, History of stroke, Anemia Case discussed with: patient's family Disposition: Still a Patient Condition: Stable Time of Disposition: 14:14
--- NOTE | 2016-11-29 12:57 | CT Report ---
CT head/brain wo con Indication: Mental status changes Comparison: CT brain dated February 22, 2014 Technique: Multiple axial tomographic images of the brain were obtained without the use of intravenous contrast. Findings: Midline structures are nondisplaced. There is no acute intracranial hemorrhage. Periventricular and subcortical hypoattenuation noted which is nonspecific but consistent with chronic microvascular ischemic change. Marked global volume loss present. Paranasal sinuses and bilateral mastoid air cells are clear. IMPRESSION: No acute intracranial abnormality demonstrated. Probable chronic microvascular ischemic change and volume loss. The CT exam was performed using one or more of the following dose reduction techniques: Automated exposure control, adjustment of the mA and/or kV according to patient size, or use of iterative reconstruction technique. PROCEDURE INTERPRETED AT [facility] DEPARTMENT OF RADIOLOGY Final Report Signed by: Dr Blayne Soriano
[2016-11-29 13:39] LABS: Eosinophils % 0.2 % (0.00-10.9); Hematocrit 24.5 VOL% (35.7-47.0); Hemoglobin 7.6 GM/DL (12.0-16.0); Immature Granulocytes % 0.5 %; Immature Granulocytes Absolute 0.02 #; Lymphocytes # 0.5 10*3/uL (1.4-4.0); Lymphocytes % 10.4 % (21.3-54.2); Mean Corpuscular Hemoglobin 21 PG (27-34); Mean Corpuscular Volume 67.5 FL (87-102); Monocytes # 0.3 10*3/uL (0.11-0.8); NRBC # 0.09 10*3/uL; Neutrophils # 3.6 10*3/uL (1.4-7.4); Neutrophils % 81.9 % (38.7-73.9); Platelet Count 273 T/CUMM (130-400); Red Blood Count 3.63 MC/CUMM (3.8-5.5); Red Cell Distribution Width 19.9 % (9.3-17.3); White Blood Count 4.4 T/CUMM (4-12)
[2016-11-29 13:40] LABS: Amorphous Crystals,Urine Few /HPF (Few); Apearance,Urine CLOUDY (Clear); Bilirubin,Urine Negative (Negative); Blood, Urine Negative (Negative); Glucose,Urine (UA) Negative (Negative); Hyaline Casts,Urine 3 /LPF (0-3); Ketones,Urine 5 mg/dL (Negative); Mucus,Urine Occasional /LPF (Occasional); Nitrite,Urine Negative (Negative); Protein,Urine Negative; RBC,Urine 3 /HPF (0-4); Squamous Epithelial Cell,Urine Occasional /HPF (0-10); Urine Color Yellow (Yellow); Urine Urobilinogen < 2.0 EU/DL (0.2-1.0); WBC,Urine 2 /HPF (0-6)
[2016-11-29 13:50] LABS: Barbiturates Screen,Urine Negative (Negative); Benzodiazepines Screen,Urine Negative (Negative); Cannabinoid Screen,Urine Positive (Negative); Opiate Screen,Urine Negative (Negative); Phencyclidine Screen,Urine Negative (Negative)
[2016-11-29 13:51] LABS: INR 1.2; PT Patient Result 12.8 SECS; Partial Thromboplastin Time 21.3 SECS (0-40)
[2016-11-29 13:58] LABS: Albumin 2.9 G/DL (3.4-5.0); Bilirubin,Total 0.4 MG/DL (0.2-1.0); Calcium 8.5 MG/DL (8.5-10.1); Potassium 4.3 MMOL/L (3.5-5.1); Thyroid Stimulating Hormone 2.9 uIU/ml (0.358-3.74); Troponin I Only 0.028 NG/ML (0.00-0.045)
--- NOTE | 2016-11-29 15:44 | Hospitalist History & Physical ---
<Neal Osorio - Last Filed: 11/29/16 15:31> Assessment and Plan (1) Altered mental status Status: Acute Assessment and plan: Family states that this is not baseline for the patient. When questioned, the patient really repeats her name. His CT is negative for acute intracranial abnormalities. Urinalysis is negative for UTI. Urine drug screen does reveal positive for cannabinoids. Patient is anemic and slightly dehydrated. Her creatinine function is 1.2 whereas her baseline is around 0.90. We will rehydrate with normal saline, type and screen and transfuse as necessary. Current Visit: Yes (2) Anemia Status: Acute Assessment and plan: H&H 7 and 24. Rehydrate with normal saline, type and screen and transfuse as necessary Current Visit: Yes History of Present Illness Chief complaint: Altered mental status History of present illness: Ms. Schneider is a 81 year old female the past medical history significant for coronary artery disease, NSTEMI with PCI, CVA, atrial fibrillation who presents to the [place] ED from Dr. Fairchild's office for further evaluation of altered mental status with onset 2 days ago. Patient's daughter and grandson were at bedside and provided some of the history though they were not very knowledgeable themselves. Apparently, the patient has been unsteady on her feet and suffered several falls within the last 2 days, most recently, Sunday night when her grandson found her and put her back in bed. The family states that she has not been her usual self since the fall. Her daughter states that she has been "talking out of her head". On exam, the patient is resting comfortably but noticeably having difficulty with breathing. When questioned, the patient repeats her name several times but rarely answers any other questions. Strength is equal bilaterally, reflexes are intact, motor function is grossly intact. Patient's speech is grossly incomprehensible. Head CT is negative for any acute intracranial abnormalities. She is anemic with H&H 7.6 and 24.5. BUN 39 creatinine 1.2 urinalysis unremarkable urine drug screen positive for cannabinoids. Patient will be admitted to hospital medicine service for evaluation and treatment. Home Medications Medication Instructions Recorded Confirmed Type Aspirin [Ecotrin] 81 mg PO QAM 10/26/14 11/29/16 History Pantoprazole Tab [Protonix Tab] 40 mg PO QAM 10/26/14 11/29/16 History Nitroglycerin Sl Tab [Nitrostat] 0.4 mg SL Q5M PRN #30 tablet 08/13/16 11/29/16 Rx Atorvastatin [Lipitor] 40 mg PO QAM 11/29/16 11/29/16 History Cholecalciferol (Vitamin D3) 2,000 unit PO QAM 11/29/16 11/29/16 History [Vitamin D3] Clopidogrel [Plavix] 75 mg PO QAM 11/29/16 11/29/16 History Metoprolol Tartrate 25 mg PO BID W/MEALS 11/29/16 11/29/16 History Tramadol HCl [Tramadol Tab] 50 mg PO Q6H PRN 11/29/16 11/29/16 History Ursodiol [Ursodiol] 300 mg PO BID 11/29/16 11/29/16 History Allergies Allergy/AdvReac Type Severity Reaction Status Date / Time Penicillins Allergy Intermediate Unknown/Unable Verified 07/22/16 10:33 to obtain Sulfa (Sulfonamide Allergy Mild Unknown/Unable Verified 07/22/16 10:33 Antibiotics) to obtain surgical tape Allergy Intermediate Redness of Uncoded 07/22/16 10:33 Skin and severe peeling at site Medical,Surgical,& Family Hx - Medical History Cardio: History of: Cardiac Dysrhythmia (ATRIAL FIBRILATION), Cardiovascular Problems (LOW BLOOD PRESSURE) No history of: Aneurysm, Cerebrovascular Disease, Congenital Heart Disease, CHF, CAD, Hypertension, Pacemaker, PVD, Valvular Heart Disease Neurology: History of: Cerebrovascular Accident (2013) No history of: Seizures HEENT: History of: Eye Problem (BLURRY VISION) No history of: Ear Problem, Dental Problems, Glaucoma, Oral Cancer Endocrine: No history of: Adrenal Disease, Diabetes Mellitus (IDDM), Diabetes Mellitus ( NIDDM), Dyslipidemia, Thyroid Disorder, Endocrine Cancer, Endocrine Problems Rheumatology: No history of;: Psoriasis, Sjogrens, Systemic Lupus Erythematosus Respiratory: No history of: Asthma, Bronchitis, COPD, Intubation, Obstructive Sleep Apnea , Pulmonary Embolism, Pulmonary Hypertension, Pneumonia, Lung Cancer, Respiratory Problems Renal: No history of: Renal (Kidney) Cancer, Dialysis, Renal Failure Genitourinary: No history of: Bladder Problem, Kidney Stones, Recurring Urinary Tract Infections, Genitourinary Cancer, Problems Gastrointestinal: History of: GI Problems (COLON CANCER SURGERY MAR 2014) Musculoskeletal: History of: Osteoporosis No history of: Amputation Hematology: History of: Bleeding Problems (PAST HISTORY OF BLOOD LOSS) No history of: Blood Transfusion Reaction Reproductive: No history of: Abnormal Pap Smear, Breast Cancer, Endometriosis, Ectopic , Ovarian Cysts, Complication, Sexually Transmitted Disorders , Reproductive Cancer, Reproductive Problems Other: History of: Eczema No history of: Anesthesia Reactions, Anaphylaxis, Malignant Hyperthermia, MRSA, Vancomycin-Resistant Enterococci, Skin Problems, Miscellaneous Medical Problems Comment Only: Cancer (COLON CANCER) - Surgical History Cardiac Surgeries: Patient Denies: Femoral-Popliteal Bypass Graft, Cardiac Catheterization, Cardiac Surgery, Carotid Endarterectomy, Internal Defibrillator, Vascular Access Devices Thoracic Surgeries: Patient denies;: Kidney (Renal Surgery), Lithotripsy, Nephrectomy, Organ Transplant, Lobectomy Neurologic Surgeries: Patient denies: Neurologic Surgery HEENT Surgeries: Surgical HX of: Eye Surgery (RIGHT EYE CATARACT) Patient denies: Carotid Endarterectomy, Thyroid Surgery, Tonsilectomy & Adenoidectomy Abdominal Surgeries: Surgical HX of: Abdominal Surgery (PT STATES BLOCKAGE IN STOMACH), Colonoscopy Patient denies: Appendectomy, Cholecystectomy, Gastric Bypass Surgery, EGD, Hernia Repair, Splenectomy Reproductive Surgeries: Patient denies;: Breast Surgery, Cystoscopy, Genitourinary Surgery, Gynecologic Surgery Orthopedic Surgeries: Patient denies;: Implanted Devices, Orthopedic Surgery, Spinal Surgery, Total Hip Replacement, Total Knee Replacement - Family History Family History: Reports;: Family Diabetes (DAUGHTER, AND SON AND GRANDSON AND 2 SISTERS), Family Hypertension (DAUGHTER, SISTER), Family Stroke (SON, DAUGHTER) Denies;: Family Anesthesia Reaction, Family Cancer, Family Heart Disease, Family Psychiatric Problems - Social History Smoking Status: Former smoker Frequency of Alcohol Use: Unknown Type of Drug Use: Marijuana Marital Status: Single Lives With:: Alone Functional capacity: uses cane/walker ROS unobtainable: due to encephalopathy Exam - Constitutional Vitals: Period Temp Pulse Resp BP Sys/Schmid Pulse Ox Last 24 Hr 20 General appearance: normal weight, no acute distress - Head Head exam: Present: normal inspection, normocephalic, atraumatic - Eye Eye exam: Present: EOMI Pupils: Present: WENDY - ENT ENT exam: Present: normal exam, normal external ear exam - Neck Neck exam: Absent: lymphadenopathy, tenderness, thyromegaly - Respiratory Respiratory exam: Present: decreased breath sounds. Absent: rales, wheezes - Cardiovascular Cardiovascular exam: Present: regular rate and rhythm - GI/Abdominal GI/Abdominal exam: Present: normal bowel sounds, soft. Absent: distended, guarding, mass, organomegaly - Extremities Exam Extremities exam: Present: normal inspection, normal capillary refill - Back Exam Back exam: Present: normal inspection. Absent: CVA tenderness (L), CVA tenderness (R) - Neurological Exam Neurological exam: Present: altered. Absent: motor sensory deficit - Skin Skin exam: Present: normal color, warm, dry Results - Labs CBC & BMP: 11/29/16 13:31 11/29/16 13:06 Lab Results: I have reviewed the past 24 hour labs - Diagnostic Findings Procedure: CT: image reviewed by me, report reviewed by me <Karen Whitaker - Last Filed: 11/29/16 17:15> Assessment and Plan - Time spent with patient Time spent with patient: Greater than 30 minutes (1) Altered mental status Status: Acute Assessment and plan: * Acute encephalopathy- metabolic/toxic and possible stroke- Check Ammonia level , TSH, anemia profile, vitamin B12 and vitamin D levels. PT/OT/ST consult. Hold pain meds. MRI brain given history of colon cancer and acute findings. Neuro consult. * RUQ abdominal pain- RUQ U/S. if unrevealing check CXR and CT abd/pelvis to r/ o fracture +/- pneumonia or intra-abdominal process * Microcytic anemia- check anemia profile. FOBT. * Clinical dehydration- gentle hydration. Repeat labs * History of colon cancer- Check CEA * LE edema and debility- check LE dopplers to r/o DVT * History of afib- telemetry * Suspect severe protein calorie malnutrition- nutrition consult DVT prophylaxis Further plans to follow as more information is available. D/W daughter and nurse and all questions answered. Current Visit: Yes (2) Anemia Status: Acute Current Visit: Yes (3) History of stroke Status: Acute Current Visit: Yes (4) Atrial fibrillation with controlled ventricular response Status: Acute Current Visit: No (5) Non-STEMI (non-ST elevated myocardial infarction) Status: Acute Current Visit: No History of Present Illness History of present illness: Ms. Schneider is a 81 year old female with a hx stroke, afib, cad s/p IN, and gallstones on Actig[place] who presents to the hospital with AMS. According to the daughter pt has been complaining of pain over the last 2 days in RUQ and has had poor oral intake. No nausea, vomiting, fever, cough or diarrhea. She has been taking tramadol for pain. According to family she had an unwitnessed fall 2 days ago and family did not seek medical attention at that time. Today she had some "abnormal breathing" and confusion and was brought to the ER for further evaluation and treatment. A 10-point review of systems was reviewed and was otherwise unremarkable. Medical,Surgical,& Family Hx - Medical History Gastrointestinal: History of: GERD, Gastrointestinal Cancer (colon cancer s/p partial colectomy), GI Problems (COLON CANCER SURGERY MAR 2014; gallstones) Hematology: History of: Anemia Other: History of: Skin Problems (psoriasis) - Surgical History Reproductive Surgeries: Surgical HX of;: Hysterectomy Additional Surgical History: partial colectomy - Social History Have you smoked in the last 12 months: No Marital Status: ROS unobtainable: due to encephalopathy Exam - Constitutional Vitals: Period Temp Pulse Resp BP Sys/Schmid Pulse Ox Last 24 Hr 88 18-20 131/104 97 Exam: Awake, alert, following simple commands but unintelligible speech, cachetic RRR no M CTAB nonlabored Soft, RUQ TTP without rebound or guarding and epigastric mass mobile, indurated approximately 2-3cm in diameter +BS no HSM Warm no c/c +2-+3 pitting LE edema Neuro: unable to complete a full neuro exam as pt was unable to follow commands completely. left facial droop noted. 3/5 strength of upper extremities and 1/5 strenght of lower extremities. Sensory exam appears to be grossly intact. Gait not assessed. Results - Labs CBC & BMP: 11/29/16 13:31 11/29/16 13:06
--- NOTE | 2016-11-29 17:18 | Neurology Consult Note ---
History of Present Illness History of present illness: Ms. Schneider is a 81 year old right-handed -Citizen Of [place] lady with past medical history significant for coronary artery disease, NSTEMI with PCI, CVA, atrial fibrillation who presents to the [place] ED from Dr. Fairchild's office for further evaluation of altered mental status with onset 2 days ago. Patient's daughter was at bedside and provided some of the history. Apparently, the patient has been unsteady on her feet and suffered several falls within the last 2 days, most recently, Sunday night when her grandson found her and put her back in bed. The family states that she has not been her usual self since the fall. Her daughter states that she has been "talking out of her head". patient repeats her name several times but rarely answers any other questions. Head CT is negative for any acute intracranial abnormalities. She is anemic with H&H 7.6 and 24.5. BUN 39 creatinine 1.2 urinalysis unremarkable urine drug screen positive for cannabinoids. Home Medications Medication Instructions Recorded Confirmed Type Aspirin [Ecotrin] 81 mg PO QAM 10/26/14 11/29/16 History Pantoprazole Tab [Protonix Tab] 40 mg PO QAM 10/26/14 11/29/16 History Nitroglycerin Sl Tab [Nitrostat] 0.4 mg SL Q5M PRN #30 tablet 08/13/16 11/29/16 Rx Atorvastatin [Lipitor] 40 mg PO QAM 11/29/16 11/29/16 History Cholecalciferol (Vitamin D3) 2,000 unit PO QAM 11/29/16 11/29/16 History [Vitamin D3] Clopidogrel [Plavix] 75 mg PO QAM 11/29/16 11/29/16 History Metoprolol Tartrate 25 mg PO BID W/MEALS 11/29/16 11/29/16 History Tramadol HCl [Tramadol Tab] 50 mg PO Q6H PRN 11/29/16 11/29/16 History Ursodiol [Ursodiol] 300 mg PO BID 11/29/16 11/29/16 History Allergies Allergy/AdvReac Type Severity Reaction Status Date / Time Penicillins Allergy Intermediate Unknown/Unable Verified 07/22/16 10:33 to obtain Sulfa (Sulfonamide Allergy Mild Unknown/Unable Verified 07/22/16 10:33 Antibiotics) to obtain surgical tape Allergy Intermediate Redness of Uncoded 07/22/16 10:33 Skin and severe peeling at site ROS unobtainable: due to mental status Medical,Surgical,& Family Hx - Medical History Cardio: History of: Cardiac Dysrhythmia (ATRIAL FIBRILATION), Cardiovascular Problems (LOW BLOOD PRESSURE) No history of: Aneurysm, Cerebrovascular Disease, Congenital Heart Disease, CHF, CAD, Hypertension, Pacemaker, PVD, Valvular Heart Disease Neurology: History of: Cerebrovascular Accident (2013) No history of: Seizures HEENT: History of: Eye Problem (BLURRY VISION) No history of: Ear Problem, Dental Problems, Glaucoma, Oral Cancer Endocrine: No history of: Adrenal Disease, Diabetes Mellitus (IDDM), Diabetes Mellitus ( NIDDM), Dyslipidemia, Thyroid Disorder, Endocrine Cancer, Endocrine Problems Rheumatology: No history of;: Psoriasis, Sjogrens, Systemic Lupus Erythematosus Respiratory: No history of: Asthma, Bronchitis, COPD, Intubation, Obstructive Sleep Apnea , Pulmonary Embolism, Pulmonary Hypertension, Pneumonia, Lung Cancer, Respiratory Problems Renal: No history of: Renal (Kidney) Cancer, Dialysis, Renal Failure Genitourinary: No history of: Bladder Problem, Kidney Stones, Recurring Urinary Tract Infections, Genitourinary Cancer, Problems Gastrointestinal: History of: GERD, Gastrointestinal Cancer (colon cancer s/p partial colectomy), GI Problems (COLON CANCER SURGERY MAR 2014; gallstones) Musculoskeletal: History of: Osteoporosis No history of: Amputation Hematology: History of: Anemia, Bleeding Problems (PAST HISTORY OF BLOOD LOSS) No history of: Blood Transfusion Reaction Reproductive: No history of: Abnormal Pap Smear, Breast Cancer, Endometriosis, Ectopic , Ovarian Cysts, Complication, Sexually Transmitted Disorders , Reproductive Cancer, Reproductive Problems Other: History of: Eczema, Skin Problems (psoriasis) No history of: Anesthesia Reactions, Anaphylaxis, Malignant Hyperthermia, MRSA, Vancomycin-Resistant Enterococci, Miscellaneous Medical Problems Comment Only: Cancer (COLON CANCER) - Surgical History Cardiac Surgeries: Patient Denies: Femoral-Popliteal Bypass Graft, Cardiac Catheterization, Cardiac Surgery, Carotid Endarterectomy, Internal Defibrillator, Vascular Access Devices Thoracic Surgeries: Patient denies;: Kidney (Renal Surgery), Lithotripsy, Nephrectomy, Organ Transplant, Lobectomy Neurologic Surgeries: Patient denies: Neurologic Surgery HEENT Surgeries: Surgical HX of: Eye Surgery (RIGHT EYE CATARACT) Patient denies: Carotid Endarterectomy, Thyroid Surgery, Tonsilectomy & Adenoidectomy Abdominal Surgeries: Surgical HX of: Abdominal Surgery (PT STATES BLOCKAGE IN STOMACH), Colonoscopy Patient denies: Appendectomy, Cholecystectomy, Gastric Bypass Surgery, EGD, Hernia Repair, Splenectomy Reproductive Surgeries: Surgical HX of;: Hysterectomy Patient denies;: Breast Surgery, Cystoscopy, Genitourinary Surgery, Gynecologic Surgery Orthopedic Surgeries: Patient denies;: Implanted Devices, Orthopedic Surgery, Spinal Surgery, Total Hip Replacement, Total Knee Replacement - Family History Family History: Reports;: Family Diabetes (DAUGHTER, AND SON AND GRANDSON AND 2 SISTERS), Family Hypertension (DAUGHTER, SISTER), Family Stroke (SON, DAUGHTER) Denies;: Family Anesthesia Reaction, Family Cancer, Family Heart Disease, Family Psychiatric Problems - Social History Smoking Status: Former smoker Frequency of Alcohol Use: Unknown Type of Drug Use: Marijuana Exam - Constitutional Vitals: Period Temp Pulse Resp BP Sys/Schmid Pulse Ox Last 24 Hr 97.5 F 84-88 18-20 131-135/93-104 97 Exam: GENERAL: Patient is in no acute distress. NECK: Neck is rigid. There is no JVD. No carotid bruits present. No thyroid masses. CVS: First and second heart sounds are normal. There is no S3 present. Regular rate and rhythm. RESPIRATORY: Lungs are clear to auscultation without any rales or rhonchi. ABDOMEN: Soft and non-tender. Bowel sounds are present. There is no hepatosplenomegaly. EXT: There is no palpable edema. Peripheral pulses are present. Skin: No rashes Central Nervous system: General: Sleepy but arousable Speech: Somewhat dysarthric Comprehension: Fair Facial expressions: Normal Cranial Nerves: Pupils are sluggish but reactive to light. Doll's head eye movements are positive. No facial asymmetry is seen Motor: Bulk and Tone is normal. Strength cannot be assessed due to poor cooperation and patient is drifting off Sensory: Cannot be assessed Reflexes: 1+ and symmetrical Cerebellar function: Not be assessed Toes: Equivocal Gait: Cannot be assessed Results - Labs CBC & BMP: 11/29/16 13:31 11/29/16 13:06 Assessment and Plan (1) Altered mental status Status: Acute Assessment and plan: Differential diagnoses included stroke, meningitis/medical encephalitis, infectious encephalopathy, metabolic encephalopathy, toxic encephalopathy etc. MRI of the brain without If negative then will plan for a spinal tap Thank you for the consult Current Visit: Yes
[2016-11-29 17:49] LABS: ABG Base Excess -0.1 MMOL/L (-2.5-2.5); ABG HCO3 24.5 MMOL/L (20-26); ABG Oxygen Saturation 97.1 % (95-100); ABG PCO2 39.1 MM HG (35-48); ABG PH 7.414 (7.35-7.45); ABG PO2 107.6 MM HG (80-95); ABG TCO2 25.7 MMOL/L (23-27)
[2016-11-29 18:31] LABS: Eosinophils % 0.3 % (0.00-10.9); Hematocrit 24.3 VOL% (35.7-47.0); Hemoglobin 7.3 GM/DL (12.0-16.0); Immature Granulocytes % 0.3 %; Immature Granulocytes Absolute 0.01 #; Lymphocytes # 0.5 10*3/uL (1.4-4.0); Lymphocytes % 13.5 % (21.3-54.2); Mean Corpuscular Hemoglobin 20 PG (27-34); Mean Corpuscular Volume 68.1 FL (87-102); Monocytes # 0.3 10*3/uL (0.11-0.8); Monocytes % 7.4 % (1.7-12.7); NRBC # 0.09 10*3/uL; Neutrophils % 78.5 % (38.7-73.9); Platelet Count 219 T/CUMM (130-400); Red Blood Count 3.57 MC/CUMM (3.8-5.5); Red Cell Distribution Width 20.2 % (9.3-17.3); White Blood Count 3.8 T/CUMM (4-12)
[2016-11-29 18:55] LABS: CKMB % 3.9 %; Troponin I Only 0.029 NG/ML (0.00-0.045)
[2016-11-29 19:03] LABS: Folate 11.3 NG/ML (5.4-24.0); Vitamin B12 828 PG/ML (211-911)
--- NOTE | 2016-11-29 19:21 | Magnetic Resonance Report ---
Referring physician: Karen Whitaker MD Exam: MRI brain without contrast Date: November 29, 2016 Comparison: MRI brain February 23, 2014 Reason: Concern for stroke, altered level of consciousness The patient is an inpatient who was admitted on November 29, 2016. Technique: MRI of the brain was performed without the use of contrast. Obtained images include sagittal T1, axial diffusion-weighted, axial FLAIR, axial T2, coronal T2, axial gradient and axial T1 sequences. A 1.5 Mandy magnet was used. Findings: Motion artifact is present and degrades the quality of the study. There are small remote infarctions in the left frontoparietal region, at the left parietal lobe and in the left subinsular region. These infarctions were acute on the prior study. Motion artifact makes evaluation for an acute infarction somewhat difficult, but no definite acute infarction is identified. There is moderate generalized cerebral atrophy/volume loss. Scattered areas of T2/FLAIR hyperintensity are also seen within the cerebral white matter bilaterally. This is nonspecific but likely represents chronic microvascular ischemic change. There are also questionable small remote infarctions within the cerebellum bilaterally. No hydrocephalus or midline shift is present. A cavum septum pellucidum is noted. There is no evidence of recent intracranial hemorrhage or abnormal mass effect. No abnormal extra-axial fluid collection is identified. Major vascular flow voids are visualized. Note is made of an ectatic right cavernous ICA. The basilar artery is also small in caliber as before. The patient is likely status post cataract surgery. There is also an empty sella, which may be partial. This is similar to before. The brainstem is unremarkable. The paranasal sinuses and mastoid air cells are clear. Impression: 1. Motion artifact is present and degrades the quality of the study. 2. No acute infarction is identified. 3. There are small remote infarctions in the left frontoparietal region, at the left parietal lobe and in the left subinsular region. These infarctions were acute on the prior MRI of February 23, 2014. 4. Moderate generalized cerebral atrophy/volume loss, possibly slightly progressed. There is also probable chronic microvascular ischemic change, similar to before. 5. Questionable small remote infarctions within the cerebellum bilaterally. This is difficult to confirm on the previous study. PROCEDURE INTERPRETED AT [facility] DEPARTMENT OF RADIOLOGY Final Report Signed by: Dr. Marcio Zhogn
[2016-11-29 19:46] LABS: Sedimentation Rate-Westergren 10 MM/HR (0-30)
--- NOTE | 2016-11-29 20:25 | XRay Report ---
Referring Physician: Karen Whitaker MD Exam: XR chest 1V portable Date: November 29, 2016 at 8:04 PM Reason: Chest pain, altered mental status Comparison: Chest one view portable August 07, 2016 Findings: The cardiac silhouette is upper normal in size, and there is persistent mild elevation of the right hemidiaphragm. There are also scattered opacities within the mid and lower lung zones bilaterally, mainly on the right. This could represent pulmonary edema and/or pneumonia with atelectasis. No pneumothorax is identified, but there is mild to moderate right pleural fluid and possible minimal left pleural fluid. No acute osseous process is seen. There is prominent degenerative change and scoliosis at the thoracic and lumbar spine. Surgical clips are noted within the abdomen. Impression: There are opacities within the mid and lower lung zones bilaterally, mainly on the right. This could represent pulmonary edema and/or pneumonia with atelectasis. There is also mild to moderate right pleural fluid and possible minimal left pleural fluid. Follow-up is recommended to confirm resolution. PROCEDURE INTERPRETED AT [facility] DEPARTMENT OF RADIOLOGY Final Report Signed by: Dr. Marcio Zhong
[2016-11-29] MEDS: SODIUM CHLOR 0.9% KCL 20 MEQ 20 MEQ/1,000 ML BAG IV SCH (21:26)
[2016-11-29 21:57] LABS: Schistocytes Few
[2016-11-29 21:58] LABS: Acanthocytes Few; Elliptocytes Few; Ovalocytes Slight; Poikilocytosis 2+; Target Cells Few; Tear Drop Cells Slight
[2016-11-29 21:59] LABS: Anisocytosis 2+; Platelet Estimate Adequate; Polychromasia Slight
--- NOTE | 2016-11-29 22:20 | Ultrasound Report ---
Referring physician: Karen Whitaker MD Exam: Bilateral lower extremity venous ultrasound Date: November 29, 2016 Comparison: Right lower extremity venous ultrasound July 22, 2016 Reason: Leg pain and swelling Technique: Duplex scan of the bilateral lower extremity veins was performed using B-Mode/grayscale imaging, compression, Doppler spectral analysis and color flow. Ultrasound images were captured and stored. Findings: There is no evidence of thrombus within the left or right common femoral veins, saphenous veins, superficial femoral veins or popliteal veins. Normal compression and augmentation are present throughout. Normal color flow and spectral analysis are observed. Subcutaneous edema is noted at both lower extremities. Impression: No evidence of deep venous thrombosis within either lower extremity. PROCEDURE INTERPRETED AT [facility] DEPARTMENT OF RADIOLOGY Final Report Signed by: Dr. Marcio Zhong
--- NOTE | 2016-11-29 22:32 | Ultrasound Report ---
Referring Physician: Karen Whitaker MD Exam: US abdomen Date: November 29, 2016 Reason: Generalized abdominal pain Comparison: Gallbladder ultrasound July 22, 2016, CT abdomen and pelvis without contrast July 22, 2016, CT abdomen and pelvis with contrast April 10, 2014 Technique: Grayscale and color flow images of the abdomen were obtained. Ultrasound images were captured and stored. Findings: The liver measures 15.2 cm in length. At the margin of the left hepatic lobe, there is a 2.3 x 2.1 x 1.8 cm isoechoic masslike area. This mass may be external to the liver. However, a hepatic lesion or other aggressive process is difficult to exclude, and correlation with CT is recommended. This is difficult to confirm on the previous CTs. There is echogenic material within the gallbladder, consistent with sludge and at least one small stone. Evaluation for gallbladder wall thickening is limited by adjacent ascites, but no definite gallbladder wall thickening is seen. The common bile duct is mildly prominent, measuring 0.6 cm in diameter. This is similar to the prior CT and may be age-related. Please correlate with bilirubin levels. The visualized pancreas is unremarkable. The right kidney measures 6.5 x 3.4 x 3.3 cm, and the left kidney measures 7.8 x 3.3 x 2.9 cm. No hydronephrosis is present. The right kidney demonstrates areas of cortical scarring, and the renal parenchyma echogenicity is increased bilaterally, which can be seen in chronic medical renal disease. The visualized IVC appears patent. The abdominal aorta is largely obscured by bowel gas. The visualized portion measures 2.5 cm in diameter. There is mild ascites. Impression: 1. Cholelithiasis. Evaluation for cholecystitis is limited by ascites, but there is no clear evidence of acute cholecystitis. Further evaluation could be performed with a nuclear medicine biliary scan. 2. Mild ascites. 3. A 2.3 x 2.1 x 1.8 cm well-circumscribed isoechoic masslike area is seen at the margin of the left hepatic lobe. This could represent a lesion external to the liver, but a hepatic lesion or other aggressive process is difficult to exclude. Correlation with CT is recommended. 4. Cortical scarring is seen at the right kidney, and there is increased echogenicity of the renal parenchyma bilaterally. This can be seen in chronic medical renal disease. 5. The common bile duct is mildly prominent but stable when compared to the prior CT dated April 10, 2014. This could be age related, but correlation with bilirubin levels is recommended. PROCEDURE INTERPRETED AT [facility] DEPARTMENT OF RADIOLOGY Final Report Signed by: Dr. Marcio Zhong
[2016-11-30 06:03] LABS: Basophils % 0.2 % (0.0-0.8); Eosinophils % 0.2 % (0.00-10.9); Hematocrit 26.5 VOL% (35.7-47.0); Hemoglobin 7.8 GM/DL (12.0-16.0); Immature Granulocytes % 0.4 %; Immature Granulocytes Absolute 0.02 #; Lymphocytes # 0.4 10*3/uL (1.4-4.0); Lymphocytes % 8.4 % (21.3-54.2); Mean Corpuscular HGB Conc 29.4 GM/DL (32-36); Mean Corpuscular Hemoglobin 20 PG (27-34); Mean Corpuscular Volume 69.2 FL (87-102); Monocytes # 0.4 10*3/uL (0.11-0.8); NRBC # 0.05 10*3/uL; Neutrophils # 4.4 10*3/uL (1.4-7.4); Neutrophils % 82.8 % (38.7-73.9); Platelet Count 232 T/CUMM (130-400); Red Blood Count 3.83 MC/CUMM (3.8-5.5); Red Cell Distribution Width 20.2 % (9.3-17.3); White Blood Count 5.3 T/CUMM (4-12)
[2016-11-30 06:33] LABS: Albumin 2.9 G/DL (3.4-5.0); Bilirubin,Total 0.9 MG/DL (0.2-1.0); Calcium 8.6 MG/DL (8.5-10.1); Magnesium 2.7 MG/DL (1.8-2.4); Osmolality,Calculated 295.7 MOS/KG (273-304); Phosphorous 3.5 MG/DL (2.5-4.9); Potassium 4.2 MMOL/L (3.5-5.1); Total Protein 5.8 G/DL (6.4-8.3)
[2016-11-30 06:36] LABS: Hypochromasia 1+; Target Cells Few
[2016-11-30 06:37] LABS: Burr Cells Slight; Elliptocytes Few; Platelet Estimate Adequate
[2016-11-30 06:42] LABS: 25 Hydroxy Vitamin D Total 8.8 NG/ML
[2016-11-30 06:46] LABS: Free T4 (Free Thyroxine) 1.25 NG/DL (0.76-1.46); Thyroid Stimulating Hormone 2.45 uIU/ml (0.358-3.74)
[2016-11-30 07:15] LABS: Rapid Plasma Reagin Confirm NONREACTIVE (Nonreactive)
[2016-11-30 08:33] LABS: Hemoglobin A1 (Alkaline) 97.7 % (96.5-98.5); Hemoglobin A2 (Alkaline) 2.3 % (1.5-3.5)
--- NOTE | 2016-11-30 08:55 | Hospitalist Progress Note ---
Assessment and Plan (1) Altered mental status Status: Acute Assessment and plan: * Acute encephalopathy- metabolic/toxic and possible stroke- Check Ammonia level , TSH, anemia profile, vitamin B12 and vitamin D levels. PT/OT/ST consult. Hold pain meds. MRI brain given history of colon cancer and acute findings. Neuro consult. * RUQ abdominal pain- RUQ U/S. if unrevealing check CXR and CT abd/pelvis to r/ o fracture +/- pneumonia or intra-abdominal process * Microcytic anemia- check anemia profile. FOBT. * Clinical dehydration- gentle hydration. Repeat labs * History of colon cancer- Check CEA * LE edema and debility- check LE dopplers to r/o DVT * History of afib- telemetry * Suspect severe protein calorie malnutrition- nutrition consult DVT prophylaxis Further plans to follow as more information is available. D/W daughter and nurse and all questions answered. Current Visit: Yes (2) Anemia Status: Acute Current Visit: Yes (3) History of stroke Status: Acute Current Visit: Yes (4) Atrial fibrillation with controlled ventricular response Status: Acute Current Visit: No (5) Non-STEMI (non-ST elevated myocardial infarction) Status: Acute Current Visit: No Hospitalist: Subjective Interval history: Patient seems more awake and alert today. She denies any abdominal pain. No fever. No chest pain, shortness of breath, or cough Exam - Constitutional Vitals: Period Temp Pulse Resp BP Sys/Schmid Pulse Ox Last 24 Hr 96.9 F-98.2 F 80-110 14-20 123-136/75-104 97-100 Exam: Awake, alert, following simple commands, patient says a few words, cachetic RRR no M CTAB nonlabored Soft, nontender nondistended and epigastric mass mobile, indurated approximately 2-3cm in diameter +BS no HSM Warm no c/c +2 pitting LE edema Neuro: Left facial droop noted. 3/5 strength of upper extremities and 1/5 strength of lower extremities. Sensory exam appears to be grossly intact. Gait not assessed. Babinski is absent. No clonus noted Results - Labs CBC & BMP: 11/30/16 05:01 11/30/16 05:00 - Impressions * Acute encephalopathy- metabolic/toxic possibly due to pain medication- improving. - Ammonia level slightly elevated. - TSH and vitamin B12 are normal. - RPR was nonreactive - Troponin was negative - Vitamin D is very low and needs supplementation. - MRI of the brain did not show any acute findings. It showed a remote left sided frontotemporal, left parietal, and left subinsular stroke with moderate generalized atrophy - Continue PT/OT/ST consult. - Hold pain meds at this time. - Appreciate neurology input * RUQ abdominal pain in a patient with cholelithiasis-possibly due to acute cholecystitis and/or liver mass - RUQ U/S showed sludge in the gallbladder and gallstones with mild ascites and a 23 x 21 x 1.8 cm mass of the left liver lobe. - Consult GI. May consider a CT of the abdomen and pelvis but I will defer this to GI. - Check CEA and AFP levels. Pending results may need surgery consult * Microcytic anemia in a patient with a history of colon cancer -Due to iron deficiency anemia. Awaiting fecal occult blood test. We will start iron supplementation at discharge. * Clinical dehydration- gentle hydration. * History of colon cancer- Check CEA * LE edema and debility-LE dopplers negative for DVT. May be dependent edema due to immobility. Continue SHARMIN hose. Follow-up echo * History of afib- telemetry. * Suspect severe protein calorie malnutrition- nutrition consult DVT prophylaxis Will update family.
[2016-11-30] MEDS ORDERED: PANTOPRAZOLE 40 MG VIAL IV SCH ×2 (09:00→21:00)
[2016-11-30] MEDS ORDERED: ERGOCALCIFEROL 50,000 UNIT CAPSULE PO SCH (13:30)
[2016-11-30 13:44] LABS: Carcinoembryonic Antigen 7.6 NG/ML (0.0-5.0)
[2016-11-30 14:12] LABS: AFP Tumor 2.1 NG/ML (0-8)
--- NOTE | 2016-11-30 17:47 | Gastrointestinal Consult Note ---
Assessment and Plan (1) Liver mass, left lobe Status: Acute Assessment and plan: This patient has a mass of her liver involving the left lobe, ultrasound is having difficulty distinguishing whether this is inside of the liver versus just outside the left lobe. The patient does have a history of colon cancer which was stage III B with 4 out of 13 lymph nodes positive. It would not surprise me if this was a peritoneal seed implant versus colon cancer metastasis. She is not really a candidate for aggressive chemotherapy. We can obtain a fine-needle biopsy of the lesion but I am not sure how it would mold insert changer. Current Visit: Yes (2) Personal history of colon cancer, stage III Status: Acute Assessment and plan: The colon cancer was discovered back in March 2014. Although she was stage III B with 4 out of 13 lymph nodes positive, she was never treated with chemotherapy and I do not believe that she would be able tolerate this now. She has some fairly severe anemia and if her upper endoscopy does not show a particular lesion such as an anastomotic ulcer or erosive changes of her stomach /jejunum one could check in her bone marrow to see whether or not there is infiltration with cancer. We could consider doing follow-up colonoscopy however given this patient's recent mental status change in underlying dementia not sure this would be practical/desirable. Current Visit: Yes (3) Pyloric stenosis, acquired Status: Acute Assessment and plan: This patient does have a history of previously noted pyloric stenosis. This had undergone surgery at the time that I saw her back in March 2014. The patient previously had a gastrojejunostomy to bypass the pyloric stenotic section. This was functioning adequately with a widely patent anastomosis. I would like to perform upper endoscopy to look and see if there is evidence of ulcers or erosions. We may wish to put the patient on proton pump inhibition long-term if this is the case to maintain her hematocrit. With her stomach bypass there is no need to resect the stenotic segment of pyloric channel. Current Visit: Yes (4) Anemia Status: Acute Assessment and plan: We might consider transfusing 2 units packed red blood cells in order to give the patient a cushion just in case she bleeds again in the future. Will cover her with Protonix 40 mg twice daily until we can perform upper endoscopy to look for potential source of bleeding. I doubt that a colonoscopy will show much more now the colon cancer is been resected. Normally this would be done at 1 year and then 3 years after that but given this patient's age and limited prognosis I am not sure that surveillance will be required in her case. Current Visit: Yes History of Present Illness Chief complaint: Left-sided liver mass, asymptomatic cholelithiasis History of present illness: Ms. Schneider is a 81 year old female who is known to me from previous upper and lower endoscopy which occurred during an admission in March 2014. At that time upper endoscopy was performed on 04/09/14 which demonstrated a moderately severe pangastritis that was nonerosive. The patient had a Elissa fundoplication wrap appeared to be intact and some pyloric stenosis--the natural duodenum could not be achieved because of the stenosis in this region, however, the patient had a large patent gastrojejunostomy leading in the jejunum without gross evidence anastomotic ulcer. Biopsy showed chronic antral gastritis which proved to be Helicobacter pylori positive. I am not sure this was ever treated. 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 The patient's lymph nodes were sampled and 4 out of 13 were found to be positive for cancer. I note that the patient did not have post resection chemotherapy given her age, this is likely to be the source of the patient's liver mass seen this admission. I do note that the patient was anemic at that time and remains anemic now. She does have some mild right upper quadrant pain but really does not voice any difficulties elsewhere. She likely has some underlying reflux/ gastritis given that her gastric Helicobacter pylori was never treated. This admission the patient is noted to have a 2.3 x 2.1 x 1.8 cm isoechoic masslike region at the margin of the left hepatic lobe. This might be amenable to biopsy but given her previous colon cancer that was noted to be positive for cancer in the lymph nodes strongly suspect this may be a colon metastatic lesion. I am going to check a CEA level. Given her underlying condition I would strongly discourage working this up further. The patient did not have the usual colonoscopy at 1 year post resection, likely again owing to her age. We can certainly perform upper endoscopy looking for potential upper GI bleeding source feeding into her anemia and to rule out anastomotic ulcers at the site of her gastrojejunostomy. The patient has never been seen in the office, and has been lost for follow-up over the last 2 years. Home Medications Medication Instructions Recorded Confirmed Type Aspirin [Ecotrin] 81 mg PO DAILY 10/26/14 11/29/16 History Pantoprazole Tab [Protonix Tab] 40 mg PO DAILY 10/26/14 11/29/16 History Nitroglycerin Sl Tab [Nitrostat] 0.4 mg SL Q5M PRN #30 tablet 08/13/16 11/29/16 Rx Atorvastatin [Lipitor] 40 mg PO DAILY 11/29/16 11/29/16 History Cholecalciferol (Vitamin D3) 2,000 unit PO DAILY 11/29/16 11/29/16 History [Vitamin D3] Clopidogrel [Plavix] 75 mg PO DAILY 11/29/16 11/29/16 History Metoprolol Tartrate 25 mg PO BID W/MEALS 11/29/16 11/29/16 History Tramadol HCl [Tramadol Tab] 50 mg PO Q6H PRN 11/29/16 11/29/16 History Ursodiol [Ursodiol] 300 mg PO BID 11/29/16 11/29/16 History Allergies Allergy/AdvReac Type Severity Reaction Status Date / Time Penicillins Allergy Intermediate Unknown/Unable Verified 07/22/16 10:33 to obtain Sulfa (Sulfonamide Allergy Mild Unknown/Unable Verified 07/22/16 10:33 Antibiotics) to obtain surgical tape Allergy Intermediate Redness of Uncoded 07/22/16 10:33 Skin and severe peeling at site Medical,Surgical,& Family Hx - Medical History Cardio: History of: Cardiac Dysrhythmia (ATRIAL FIBRILATION), Cardiovascular Problems (LOW BLOOD PRESSURE) No history of: Aneurysm, Cerebrovascular Disease, Congenital Heart Disease, CHF, CAD, Hypertension, Pacemaker, PVD, Valvular Heart Disease Neurology: History of: Cerebrovascular Accident (2013) No history of: Seizures HEENT: History of: Eye Problem (BLURRY VISION) No history of: Ear Problem, Dental Problems, Glaucoma, Oral Cancer Endocrine: No history of: Adrenal Disease, Diabetes Mellitus (IDDM), Diabetes Mellitus ( NIDDM), Dyslipidemia, Thyroid Disorder, Endocrine Cancer, Endocrine Problems Rheumatology: No history of;: Psoriasis, Sjogrens, Systemic Lupus Erythematosus Respiratory: No history of: Asthma, Bronchitis, COPD, Intubation, Obstructive Sleep Apnea , Pulmonary Embolism, Pulmonary Hypertension, Pneumonia, Lung Cancer, Respiratory Problems Renal: No history of: Renal (Kidney) Cancer, Dialysis, Renal Failure Genitourinary: No history of: Bladder Problem, Kidney Stones, Recurring Urinary Tract Infections, Genitourinary Cancer, Problems Gastrointestinal: History of: GERD, Gastrointestinal Cancer (colon cancer s/p partial colectomy), GI Problems (COLON CANCER SURGERY MAR 2014; gallstones) Musculoskeletal: History of: Osteoporosis No history of: Amputation Hematology: History of: Anemia, Bleeding Problems (PAST HISTORY OF BLOOD LOSS) No history of: Blood Transfusion Reaction Reproductive: No history of: Abnormal Pap Smear, Breast Cancer, Endometriosis, Ectopic , Ovarian Cysts, Complication, Sexually Transmitted Disorders , Reproductive Cancer, Reproductive Problems Other: History of: Eczema, Skin Problems (psoriasis) No history of: Anesthesia Reactions, Anaphylaxis, Malignant Hyperthermia, MRSA, Vancomycin-Resistant Enterococci, Miscellaneous Medical Problems Comment Only: Cancer (COLON CANCER) - Surgical History Cardiac Surgeries: Patient Denies: Femoral-Popliteal Bypass Graft, Cardiac Catheterization, Cardiac Surgery, Carotid Endarterectomy, Internal Defibrillator, Vascular Access Devices Thoracic Surgeries: Patient denies;: Kidney (Renal Surgery), Lithotripsy, Nephrectomy, Organ Transplant, Lobectomy Neurologic Surgeries: Patient denies: Neurologic Surgery HEENT Surgeries: Surgical HX of: Eye Surgery (RIGHT EYE CATARACT) Patient denies: Carotid Endarterectomy, Thyroid Surgery, Tonsilectomy & Adenoidectomy Abdominal Surgeries: Surgical HX of: Abdominal Surgery (PT STATES BLOCKAGE IN STOMACH), Colonoscopy Patient denies: Appendectomy, Cholecystectomy, Gastric Bypass Surgery, EGD, Hernia Repair, Splenectomy Reproductive Surgeries: Surgical HX of;: Hysterectomy Patient denies;: Breast Surgery, Cystoscopy, Genitourinary Surgery, Gynecologic Surgery Orthopedic Surgeries: Patient denies;: Implanted Devices, Orthopedic Surgery, Spinal Surgery, Total Hip Replacement, Total Knee Replacement - Family History Family History: Reports;: Family Diabetes (DAUGHTER, AND SON AND GRANDSON AND 2 SISTERS), Family Hypertension (DAUGHTER, SISTER), Family Stroke (SON, DAUGHTER) Denies;: Family Anesthesia Reaction, Family Cancer, Family Heart Disease, Family Psychiatric Problems - Social History Smoking Status: Former smoker Frequency of Alcohol Use: Unknown Type of Drug Use: Marijuana ROS unobtainable: due to dementia Exam - Constitutional Vitals: Period Temp Pulse Resp BP Sys/Schmid Pulse Ox Last 24 Hr 96.0 F-98.2 F 80-110 14-20 123-136/75-89 100-100 General appearance: no acute distress Exam: Constitutional: Well-developed, well-nourished, alert, and in no acute distress Head and face: Head: Normocephalic atraumatic Eyes: Conjunctiva without injection, no gross scleral icterus, pupils equal and round bilaterally Ears: Intact to conversation in both ears Nose: External appearance is normal, nares patent Mouth: Oral mucous membranes somewhat tacky without erythema-- patient is edentulous. Neck: Normal appearance, no masses or tenderness, trachea midline Thyroid: Gland midline and appropriate size for age Respiratory: Normal respiratory effort, clear to auscultation without wheezes, rhonchi or rales Cardiovascular: Regular rate and rhythm, normal S1, S2, the exam is without rubs, murmurs or gallops. Gastrointestinal: There is mild tenderness to deep palpation in the right upper quadrant. There is a midline long scar associated with the patient's previous gastric surgery, Elissa fundoplication, and later also use for her right hemicolectomy by Dr. Connolly with abdominal hysterectomy by Dr. Martina Reed in 2013. normal active bowel sounds, tone normal without rigidity or guarding, no masses present, no hepatomegaly, no spleen tip felt. The patient does have a rectal exam which showed loss of tone as well as internal hemorrhoids and guaiac trace positivity Lymphatic: Neck without adenopathy, axilla without lymphadenopathy present Musculoskeletal: Patient has increased tone/stiffness in her bilateral lower extremities. There is trace edema noted at the ankles bilaterally Skin and subcutaneous tissue: No rashes or ulcerations noted, normal skin turgor, digits and nails without clubbing/cyanosis/deformities. Neurologic: The patient is able to mumble words from time to time she can follow simple commands at times as well. Cranial nerves show tongue movements are normal with normal tongue extrusion midline, light touch sensation is intact. Psychiatric: Unable to assess completely, the patient appears severely demented. She is able to interact minimally. Results - Labs CBC & BMP: 11/30/16 05:01 11/30/16 05:00
--- NOTE | 2016-11-30 18:03 | ECHO Report ---
Mirlande Schneider Exam Date: 11/30/2016 10:32 Referring Physician: Technologist: Erin Moore Age: 81 Ht (in): 62 Wt (lb): 105 Gender: F Exam Location: [facility] Echo Indications: Hx. A Fib, anemia, leg swelling BP: 123 / 81 HR: 90 Rhythm: Sinus Technical Quality: IMPRESSIONS Grossly 3+ left and right atrial enlargement Normal LV systolic function with ejection fraction is to be 60% without segmental wall motion normality Aortic sclerosis without stenosis 2-3+ eccentric posterior directed mitral regurgitation 2-3+ tricuspid regurgitation with RVSP 72 mmHg plus RAP suggesting severe pulmonary hypertension Pleural effusion noted Irregular rhythm noted on monitor strip MEASUREMENTS (Male / Female) Normal Values 2D ECHO LV Diastolic Diameter PLAX 3.0 cm 4.2 - 5.9 / 3.9 - 5.3 cm LV Systolic Diameter PLAX 2.3 cm LV Fractional Shortening PLAX 23.1 % IVS Diastolic Thickness 1.9 cm 0.6 - 1.0 / 0.6 - 0.9 cm LVPW Diastolic Thickness 1.9 cm 0.6 - 1.0 / 0.6 - 0.9 cm RV Internal Dim ED PLAX 2.9 cm Aortic Root Diameter 2.4 cm LA Systolic Diameter LX 3.1 cm 3.0 - 4.0 / 2.7 - 3.8 cm DOPPLER TR Peak Velocity 423.0 cm/s TR Peak Gradient 71.6 mmHg FINDINGS Left Ventricle Severely increased septal wall thickness. Severely increased posterior wall thickness. Mild concentric left ventricular hypertrophy with diastolic dysfunction. Left ventricular ejection fraction is estimated at Right Ventricle Normal right ventricular size. Right Atrium Moderately increased right atrial size. Left Atrium Moderately increased left atrial size. Mitral Valve Mild mitral valve sclerosis. Moderate mitral valve regurgitation. Aortic Valve Mild aortic valve sclerosis. Mild aortic valve regurgitation. Tricuspid Valve Morphologically normal tricuspid valve. Severe tricuspid valve regurgitation. Tricuspid regurgitation velocities suggest a PAP of 71.6 mmHg + RAP. Pulmonic Valve Morphologically normal pulmonic valve. Trace pulmonary valve regurgitation. Pericardium No pericardial effusion. + pleural effusion. Aorta Normal size aortic root and proximal ascending aorta. Azael Rubin (Electronically Signed) Final Date: 30 Nov 2016 18:02
--- NOTE | 2016-11-30 18:11 | Nuclear Medicine Report ---
Referring physician: Karen Whitaker MD Exam: Nuclear medicine hepatobiliary scan Date: November 30, 2016 Comparison: Abdominal ultrasound November 29, 2016 Reason: Elevated LFTs, abnormal ultrasound, abdominal pain Technique: The patient was administered 5 mCi of technetium 99m Choletec IV. Images of the right upper quadrant were then acquired over 120 minutes. The patient was then orally administered 8 ounces of ensure. Gallbladder ejection fraction was calculated. Findings: There is delayed uptake and excretion of radiotracer by the liver, which raises the possibility of hepatic dysfunction. Radiotracer accumulation is seen within the gallbladder at 50 minutes, and radiotracer activity is seen within the bowel after 60 minutes. The gallbladder ejection fraction at 20 minutes is 1%, at 40 minutes is 2% and at 60 minutes is 0%. Impression: 1. Radiotracer accumulation is seen within the gallbladder, suggesting patency of the cystic duct. 2. The gallbladder ejection fraction is severely low. This can be seen in gallbladder dysfunction/chronic cholecystitis. 3. There is delayed hepatic uptake and excretion of radiotracer. This raises the possibility of hepatic dysfunction. Please correlate with liver function studies. PROCEDURE INTERPRETED AT [facility] DEPARTMENT OF RADIOLOGY Final Report Signed by: Dr. Marcio Zhong
[2016-12-01] MEDS: SODIUM CHLOR 0.9% KCL 20 MEQ 20 MEQ/1,000 ML BAG IV SCH ×2 (02:21)
[2016-12-01 05:12] LABS: Eosinophils % 0.9 % (0.00-10.9); Hematocrit 20.6 VOL% (35.7-47.0); Immature Granulocytes % 0.5 %; Immature Granulocytes Absolute 0.02 #; Lymphocytes # 0.4 10*3/uL (1.4-4.0); Lymphocytes % 9.2 % (21.3-54.2); Mean Corpuscular HGB Conc 30.6 GM/DL (32-36); Mean Corpuscular Hemoglobin 21 PG (27-34); Mean Corpuscular Volume 67.5 FL (87-102); Monocytes # 0.4 10*3/uL (0.11-0.8); Monocytes % 8.7 % (1.7-12.7); NRBC # 0.04 10*3/uL; Neutrophils # 3.4 10*3/uL (1.4-7.4); Neutrophils % 80.7 % (38.7-73.9); Platelet Count 219 T/CUMM (130-400); Red Blood Count 3.05 MC/CUMM (3.8-5.5); Red Cell Distribution Width 19.9 % (9.3-17.3); White Blood Count 4.3 T/CUMM (4-12)
[2016-12-01 05:17] LABS: Hemoglobin 6.3 GM/DL (12.0-16.0)
[2016-12-01 05:33] LABS: Burr Cells Slight; Elliptocytes Few; Hypochromasia 2+; Platelet Estimate Adequate
[2016-12-01 05:34] LABS: Target Cells Few
[2016-12-01] MEDS ORDERED: SODIUM CHLORIDE 0.9% 250 ML IV PRN (05:47)
[2016-12-01] MEDS ORDERED: LABETALOL 100 MG/20 ML VIAL IV ONE (09:01)
[2016-12-01] MEDS ORDERED: PROPOFOL 200 MG/20 ML VIAL IV ONE (09:01)
--- NOTE | 2016-12-01 09:13 | Operative Note ---
Date of procedure: 12/01/16 Pre-op diagnosis: Anemia of unclear etiology. This patient has a history of colon CA 2013 Post-op diagnosis: other (Patient is experiencing some decrease in her hematocrit to 20.6%, there is no gross evidence of anastomotic stricturing noted in the gastrojejunostomy site, no evidence of cancer here, no evidence of bleeding in the stomach whatsoever or in the visualized proximal small bowel. Pyloric stenosis prevented us from looking at the duodenum.) Procedure: PROCEDURE: Esophagogastroduodenoscopy (EGD) with cold biopsy for pathology REFERRING PHYSICIAN: Hari Davis MD INDICATIONS: Hematocrit down to 20.6 and 6.3 hemoglobin, prior history of pyloric stenosis with gastrojejunostomy, recheck to see if there is an anastomotic ulcer causing the bleeding above. 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 She had 4 of 13 lymph nodes positive and was never treated with chemo, liver mass noted now. The prior H&P was reviewed and interrim changes are as noted: No change from GI consultation yesterday ENDOSCOPIST: Sudeep Mark MD ENDOSCOPE: Olympus Video 100 System upper endoscope ASA CLASS: 4E EXAM: CV: regular rate and rhythm respiratory: Clear without wheezes abdominal: active bowel sounds MEDICATION: Per nursing anesthesia protocol, see their notes PROCEDURE: After discussion of the potential risks and benefits of upper endoscopy, the informed consent was obtained. The patient was then placed in the left lateral decubitus position where sedation was achieved as noted above. Esophageal intubation was performed without difficulty, and the endoscope was advanced through the esophagus, stomach and duodenum. A slow withdrawal was then performed with retroflexion in the stomach for careful inspection of the incisura angularis, fundus and cardia. The scope was then returned to a neutral position and withdrawn through the esophagus. The patient tolerated the procedure well and without complication. BIOPSIES: None obtained PHOTOGRAPHS: obtained FINDINGS: Hypopharynx and Larynx: Normal Esohagoscopy Upper and middle thirds: Normal Lower third tortuous but otherwise normal Esophogastric junctions: Tortuous but otherwise normal Gastroscopy: Cardia/Fundus: 1 cm hiatal hernia noted Body: Stomach is somewhat dilated, there is a widely patent gastrojejunostomy opening into the jejunum, there is no anastomotic ulcer, there is no evidence of bleeding Antrum and pylorus pyloric stenosis noted Duodenoscopy: Bulb unable to visualize due to pyloric stenosis Second and third portions: Unable to visualize due to pyloric stenosis IMPRESSION: Patient is experiencing some decrease in her hematocrit to 20.6% , there is no gross evidence of anastomotic stricturing noted in the gastrojejunostomy site, no evidence of cancer here, no evidence of bleeding in the stomach whatsoever or in the visualized proximal small bowel. Pyloric stenosis prevented us from looking at the duodenum. RECOMMENDATIONS: Follow up for biopsy results in 1-2 weeks by phone [phone] Continue anti-gastroesophageal reflux measures (avoid carbonated and acidic beverages, avoid eating within 2 hours of bedtime, avoid tight fitting clothing , and elevate the front bed posts 6 inches prior to sleeping. If patient has black tarry bowel movements would suggest strongly obtaining a tagged red blood cell scan over the weekend. Sudeep Mark MD COPY TO: Hari Davis MD Anesthesia: MAC Surgeon / Physician: Sudeep Mark Estimated blood loss: minimal Specimens: none sent Condition: stable Disposition: post procedure unit (G.I. Suite) Results - Labs CBC & BMP: 12/01/16 04:35 11/30/16 05:00 Discharge Plan - Discharge Medications No Action Pantoprazole Tab [Protonix Tab] 40 mg PO DAILY Aspirin [Ecotrin] 81 mg PO DAILY Tramadol HCl [Tramadol Tab] 50 mg PO Q6H PRN PRN Reason: Pain Atorvastatin [Lipitor] 40 mg PO DAILY Nitroglycerin Sl Tab [Nitrostat] 0.4 mg SL Q5M PRN #30 tablet PRN Reason: Chest Pain Metoprolol Tartrate 25 mg PO BID W/MEALS Ursodiol [Ursodiol] 300 mg PO BID Cholecalciferol (Vitamin D3) [Vitamin D3] 2,000 unit PO DAILY Clopidogrel [Plavix] 75 mg PO DAILY - Follow Up or Referral - Forms/Instructions
[2016-12-01 09:16] VITALS: BP 121/86
[2016-12-01] MEDS ORDERED: VASOPRESSIN 100 UNITS in SODIUM CHLORIDE 0.9% 95 ML IV SCH (09:30)
[2016-12-01] MEDS ORDERED: EPINEPHrine 1 MG/ML VIAL ONE ×3 (09:34→09:56)
--- NOTE | 2016-12-01 14:48 | Discharge Summary ---
Hospital Course - Hospital Course Hospital Course: Pt was a 81 year old -[place] female with a hx stroke, afib, cad s/p PR , colon cancer and gallstones on Actigall who presents to the hospital with AMS. According to the daughter pt has been complaining of pain over the last 2 days in RUQ and has had poor oral intake. No nausea, vomiting, fever, cough or diarrhea. She has been taking tramadol for pain. According to family she had an unwitnessed fall 2 days ago and family did not seek medical attention at that time. On the day of admission she had some "abnormal breathing" and confusion and was brought to the ER for further evaluation and treatment. All home medications were held and patient's mental status improved. Urine tox screen was positive for cannabis. Ammonia level slightly elevated. TSH and vitamin B12 are normal. RPR was nonreactive. Troponin was negative. Vitamin D is very low and supplementation was planned to be started. CT of the head showed no acute process. MRI of the brain did not show any acute findings. It showed a remote left sided frontotemporal, left parietal, and left subinsular stroke with moderate generalized atrophy. PT/OT/ST were consulted. Speech therapy recommended a pured diet. Neurology was consulted due to initial concern for possible stroke but given MRI results this differential was ruled out. For right upper quadrant abdominal pain, it was felt patient may have cholecystitis. GI was consulted to assist with her management. RUQ U/S showed sludge in the gallbladder and gallstones with mild ascites and a 23 x 21 x 1.8 cm mass of the left liver lobe. CEA and AFP levels were checked and CEA levels were elevated. AFP was normal. I discussed with family that this may be related to an extension of her colon cancer. Blood work revealed a microcytic anemia which was found to be related to iron deficiency anemia. Fecal occult blood test was ordered with plans to start iron supplementation but a sample was not able to be provided. For dehydration patient was treated with gentle IV fluids. And for lower extremity edema and debility lower extremity Dopplers were checked for DVT and were noted to be negative. It was thought her edema was due to severe malnutrition and immobility. SHARMIN hose were placed. Echocardiogram was ordered revealing severe concentric LVH, severe mitral and tricuspid regurgitation and severe pulmonary hypertension. Patient was monitored on telemetry given her history of atrial fibrillation and nutrition consult was placed for severe protein calorie malnutrition. Patient was taken for an EGD on 12/01/2016 where she became bradycardic and aggressive ACLS protocol was initiated. For details regarding the ACLS course please see the code sheet for details. Patient eventually was on epinephrine, vasopressin, and dopamine drips and intubated. Despite aggressive management, and after discussion with the family after the code was run for 61 minutes the family decided to stop resuscitative measures. Patient at 10:24am. Family was notified and updated in detail and condolences expressed. Patient's body was released to the home of the family's choice. - Time spent with patient Time with patient DS: Greater than 30 minutes (1 hour and 32 minutes arranging this discharge) Diagnosis - Discharge Diagnosis (1) Altered mental status Status: Acute (2) Anemia Status: Acute (3) History of stroke Status: Acute (4) Atrial fibrillation with controlled ventricular response Status: Acute (5) Non-STEMI (non-ST elevated myocardial infarction) Status: Acute Discharge Plan - Discharge Data Condition at Discharge: - Discharge Medications No Action Pantoprazole Tab [Protonix Tab] 40 mg PO DAILY Aspirin [Ecotrin] 81 mg PO DAILY Tramadol HCl [Tramadol Tab] 50 mg PO Q6H PRN PRN Reason: Pain Atorvastatin [Lipitor] 40 mg PO DAILY Nitroglycerin Sl Tab [Nitrostat] 0.4 mg SL Q5M PRN #30 tablet PRN Reason: Chest Pain Metoprolol Tartrate 25 mg PO BID W/MEALS Ursodiol [Ursodiol] 300 mg PO BID Cholecalciferol (Vitamin D3) [Vitamin D3] 2,000 unit PO DAILY Clopidogrel [Plavix] 75 mg PO DAILY - Follow Up or Referral - Forms/Instructions Exam - Constitutional Vitals: Period Temp Pulse Resp BP Sys/Schmid Pulse Ox Last 24 Hr 97.1 F-98 F 87-120 15-20 109-131/66-86 91-99 Exam: Patient is frail, cachectic, elderly female Corneal reflexes were absent, pupils were fixed and dilated No cardiorespiratory tones were auscultated Cool extremities with cyanosis Discharge Results Procedures and tests throughout hospitalization: Pending Orders 12/01/16 04:32 Red Blood Cells Leuko Red Stat Type and Screen Stat Labs on day of discharge: Labs from last 24 hours 12/01/16 12/01/16 12/01/16 04:35 04:35 04:32 WBC 4.3 RBC 3.05 L D Hgb 6.3 L* Hct 20.6 L MCV 67.5 L MCH 21 L MCHC 30.6 L RDW 19.9 H Plt Count 219 Neut % (Auto) 80.7 H Lymph % (Auto) 9.2 L [place] % (Auto) 8.7 Eos % (Auto) 0.9 Baso % (Auto) 0.0 Neut # (Auto) 3.4 Lymph # (Auto) 0.4 L [place] # (Auto) 0.4 Eos # (Auto) 0.0 Baso # (Auto) 0.0 Immature Gran % 0.5 Nucleated RBC % 0.9 Immature Gran # 0.02 Nucleated RBCs # 0.04 Platelet Estimate Adequate Hypochromasia 2+ Target Cells Few [place] Cells Slight Elliptocytes Few Morphology Comment Tumor Marker AFP Carcinoembryonic Ag 6.1 H Blood Type O POSITIVE Antibody Screen Negative Crossmatch See Detail 11/30/16 05:11 WBC RBC Hgb Hct MCV MCH MCHC RDW Plt Count Neut % (Auto) Lymph % (Auto) [place] % (Auto) Eos % (Auto) Baso % (Auto) Neut # (Auto) Lymph # (Auto) [place] # (Auto) Eos # (Auto) Baso # (Auto) Immature Gran % Nucleated RBC % Immature Gran # Nucleated RBCs # Platelet Estimate Hypochromasia Target Cells Tavo Cells Elliptocytes Morphology Comment Tumor Marker AFP 2.1 Carcinoembryonic Ag 7.6 H Blood Type Antibody Screen Crossmatch DS: Provider Date of admission: 11/29/16 14:25 Primary care physician: . No PCP Attending physician on admission: Karen Whitaker MD Consults: 11/29/16 16:53 Consult to Dietitian [CONS] Routine Reason for Dietitian: Diet Instruction 11/29/16 16:57 Consult to Occupational Therapy [CONS] Routine Reason for Occupational Therapy: Evaluate and Treat Consult to Physical Therapy [CONS] Routine Reason for Physical Therapy: Evaluate and Treat 11/29/16 17:09 Consult to Dietitian [CONS] Routine Reason for Dietitian: Other Consult Comment: severe protein calorie malnutrition 11/30/16 13:08 Consult to Physician [CONS] Routine Comment: liver mass and possible Cholecystitis Consulting Provider: Sudeep Mark Consulting Provider Notified: Yes When should Consulting Provider be notified: Now Consult to Specialist Group: Gastroenterology When should Consulting Provider be notified: Now Person Notified: CHAY Date Notified: 11/30/16 Time Notified: 14:16 11/30/16 17:48 Consult to Anesthesiology [CONS] Routine Consulting Provider: Reason for Anesthesiology: Pre-op Clearance 11/30/16 18:37 Consult to Case Mgmt/Social Srvs [CONS] Routine Reason for Case Mgmt/Social Srvs: Equipment Consult Comment: Wheelchair Discharging clinician: Karen Whitaker MD
== END 2016-12-01 10:25 | disposition expired | DRG 91 ==
LOC: N.ED 11:45 → N.EDINP 14:40 → N.4E 14:43
PROVIDERS: ADMIT Pediatrics; ATTEND Pediatrics